=== PATIENT | female | born 1995 | race Two or more races ===

== ENCOUNTER 2021-03-13 13:35 | Outpatient (REF) | payer MEDICAID, SELFPAY | END 2021-03-13 13:36 | disposition home or self-care (01) | LOC: HO.LAB 13:35 | PROVIDERS: PCP Pediatrics; Visit Provider Internal Medicine | DX: Z20.822 Contact with and (suspected) exposure to COVID-19 (principal) | CPT/HCPCS: C9803; U0003; U0005 ==

== ENCOUNTER 2021-03-21 15:37 | Outpatient (REF) | payer MEDICAID, SELFPAY | END 2021-03-21 15:38 | disposition home or self-care (01) | LOC: HO.LAB 15:37 | PROVIDERS: Visit Provider Internal Medicine | DX: Z20.822 Contact with and (suspected) exposure to COVID-19 (principal) | CPT/HCPCS: C9803; U0003; U0005 ==

== ENCOUNTER 2021-08-15 09:08 | Outpatient (REF) | payer MEDICAID, SELFPAY ==
[2021-08-15 09:45] LABS: COVID-19 Test Negative (Negative)
== END 2021-08-15 09:09 | disposition home or self-care (01) ==
LOC: HO.LAB 09:08
PROVIDERS: PCP Pediatrics; Visit Provider Internal Medicine
DX: Z20.822 Contact with and (suspected) exposure to COVID-19 (principal)
CPT/HCPCS: 36415; 87635; C9803

== ENCOUNTER 2021-10-08 15:06 | Emergency (ER) | payer MEDICAID, SELFPAY ==
--- NOTE | ~2021-10-08 | XR_ITS ---
EXAMINATION: XR SCAPULA, LEFT CLINICAL INFORMATION: Fall, left scapula pain COMPARISON: None TECHNIQUE: AP and scapular Y views of the left scapula. FINDINGS: The scapula is normal in appearance with no evidence of fracture. The glenohumeral and acromioclavicular articulations are maintained. XR/XR scapula LT IMPRESSION: Normal left scapula.
[2021-10-08 15:49] VITALS: BP 120/75; PULSE 68; RESP 16; TEMP 36.1; O2SAT 98; BMI 37.8
--- NOTE | 2021-10-08 19:39 | ED_ITS ---
HPI - Back Pain/Injury General Chief Complaint: Back Pain/Injury Stated Complaint: fell / back pain L shoulder pain Time Seen by Provider: 10/08/21 19:38 Source: patient Limitations: no limitations History of Present Illness HPI Narrative: This is a 26-year-old female who fell around 14:00 today when she slipped on ice and fell on her back. Patient did bump her head but denies loss of consciousness. She denies any nausea vomiting. She has a mild headache. Denies any neck pain. The patient has pain to her upper back, worse on the left side. She denies pain that is worse taking a deep breath. He denies shortness of breath. Denies abdominal pain or injuries to her lower extremities. Related Data Previous Rx's Medication Instructions Recorded cyclobenzaprine 10 mg tablet 10 mg PO TID PRN #20 tab 10/08/21 ibuprofen 600 mg tablet 600 mg PO Q6H PRN #30 tab 10/08/21 Allergies Allergy/AdvReac Type Severity Reaction Status Date / Time No Known Allergies Allergy Verified 10/08/21 15:46 Review of Systems Constitutional: Constitutional: Reports as per HPI, Denies fever(s) and Reports headache(s) Eyes: Eyes: Reports no additional eye complaints ENT: Reports headache(s) Cardiovascular: Cardiovascular: Reports no additional cardiovascular complaints Respiratory: Respiratory: Reports no additional respiratory complaints Gastrointestinal: Gastrointestinal: Reports no additional gastrointestinal complaints, Denies abdominal pain, Denies nausea and Denies vomiting Musculoskeletal: Musculoskeletal: Reports back pain and Denies numbness Neurologic: Reports headache(s), Denies focal weakness, Denies numbness, Denies Sensory deficit (Neuro) and Denies paresthesias [facility] Past Medical History Medical History (Updated 10/09/21 @ 00:01 by Background Daemon) No known health problems Social History Social History Advance Directives: No Advance Directives Information Provided: Yes Physical Exam Vital Signs: Vital Signs: Last Vital Signs Temp 97 F 10/08/21 15:49 Pulse 68 10/08/21 15:49 Resp 16 10/08/21 15:49 BP 120/75 10/08/21 15:49 Pulse Ox 98 10/08/21 15:49 BMI result Body Mass Index 37.8 Const: General: cooperative, no acute distress and alert Orien tation/consciousness: patient oriented x3 HENMT: Head: Yes normal to inspection Eyes: General: appearance normal, both eyes and all related structures Eyelids: Yes eyelids normal Conjunctivae: conjunctivae normal Pupils: Equal, round and reactive pupils present Neck: Neck: Yes normal visual inspection and Yes supple Chest: Chest palpation & inspection: normal inspection of the chest Resp: Effort & Inspection: normal respiratory effort Auscultation: clear to auscultation bilaterally Cardio: Rate: regular rate Rhythm: regular rhythm Heart sounds: S1 normal heart sound present, S2 normal heart sound present, no gallops, no murmurs and no rubs GI: Palpation (GI): Soft to palpation, nontender and Other GI palpation findings present (Non-distended) Auscultation: normal bowel sounds Back/Spine/Pelvis: Other: Patient with pain out of proportion to physiology when lightly touched both her left upper back and around her left clavicle area. Patient has clear lungs, moves her head normally, no focal tenderness over the cervical spine Skin: General skin exam: no rashes or lesions noted Neuro: General: patient oriented x3, no focal motor deficits and CN's II-XI intact bilaterally Cranial nerves: Yes Equal, round and reactive pupils present Cognition (Neuro): normal cognition Motor exam (neuro): 5/5 motor strength present throughout Sensory Exam: No Sensory deficit (Neuro) Extrem: General: Yes normal to inspection and Yes no pedal edema Psych: Appearance: grossly normal Affect: normal affect MDM - Back Pain/Injury MDM Narrative Medical decision making narrative: Patient with over back pain after a fall, principally around her shoulder blade. Patient also seems to have exquisite tenderness anteriorly and almost river help patient has done. Scapular x-ray negative. Patient bumped her head but has no scalp tenderness along no cervical spine tenderness, moves her head normally. Patient has no pleuritic symptoms, doubt rib fracture. Imaging Data Left scapula x-ray: Radiologist's impression: Negative for pathology Discharge Plan Discharge Clinical Impression: Contusion of upper back Patient Disposition: Home, Self-Care Instructions: Contusion in Adults (ED) Additional Instructions: Use an ice pack off and on. Use ibuprofen Flexeril as prescribed for pain and muscle strain. Return for any new or worse symptoms. Prescriptions: New ibuprofen 600 mg tablet 600 mg PO Q6H PRN (Reason: pain) Qty: 30 RF: 0 cyclobenzaprine 10 mg tablet 10 mg PO TID PRN (Reason: muscle spasm) Qty: 20 RF: 0 Interventions: ED Discharge Assessment Last Done: 10/08/21 20:23 Discharge Date/Time: 10/08/21 19:49
[2021-10-08] MEDS: Ibuprofen 600 MG TABLET PO (19:56)
[2021-10-08] MEDS: Cyclobenzaprine HCl 10 MG TABLET PO (19:56)
== END 2021-10-08 19:49 | disposition home or self-care (01) ==
PROVIDERS: Emergency Provider Emergency Medicine; PCP Pediatrics
DX: S30.0XXA Contusion of lower back and pelvis, initial encounter (principal); G44.309 Post-traumatic headache, unspecified, not intractable; M25.512 Pain in left shoulder; W00.0XXA Fall on same level due to ice and snow, initial encounter; Y93.9 Activity, unspecified; Y92.9 Unspecified place or not applicable; Y99.9 Unspecified external cause status; Z79.899 Other long term (current) drug therapy
CPT/HCPCS: 73010; 99284

== ENCOUNTER 2022-01-29 09:31 | Emergency (ER) | payer MEDICAID, SELFPAY ==
[2022-01-29 09:55] VITALS: BP 122/75; PULSE 89; RESP 20; TEMP 36.3; O2SAT 97; BMI 35.9
[2022-01-29 11:06] LABS: Glucose, Whole Blood 126 mg/dL (60-115)
[2022-01-29 11:06] LABS: MANUAL DIFF FLAG NO
[2022-01-29 11:21] LABS: Basophils Percent Auto 0.3 % (0-2); Eosinophils Absolute Auto 0.1 X10*3/uL (0.0-0.4); Eosinophils Percent Auto 0.9 % (0-4); Hematocrit 36.8 % (37.0-47.0); Hemoglobin 11.6 g/dl (12.0-16.0); Imm Gran Abs Auto 0.06 X10*3/uL (0.00-0.03); Imm Gran Pct Auto 0.6 % (0.0-0.4); Lymphocytes Absolute Auto 2.1 X10*3/uL (1.2-4.9); Lymphocytes Percent Auto 22.3 % (20-40); Mean Corpuscular HGB Conc 31.5 g/dl (31.0-35.0); Mean Corpuscular Hemoglobin 25.9 pg (27.0-33.0); Mean Corpuscular Volume 82.1 fL (80.0-98.0); Monocytes Absolute Auto 0.6 X10*3/uL (0.1-1.2); Monocytes Percent Auto 5.8 % (2-11); Neutrophils Absolute Auto 6.7 x10*3/uL (2.0-8.3); Neutrophils Percent Auto 70.1 % (45-73); Platelet Count 299 X10*3/uL (160-400); Red Blood Count 4.48 X10*6/uL (4.20-5.50); Red Cell Distribution Width 14.3 % (11.0-16.0); White Blood Count 9.6 X10*3/uL (4.8-10.8)
[2022-01-29 11:25] LABS: Anion Gap 11 (12-20); Blood Urea Nitrogen 11 mg/dL (9-16); Calcium 9.6 mg/dL (8.4-10.2); Carbon Dioxide 26 mmol/L (22-29); Chloride 106 mmol/L (96-108); Creatinine Clr Calc Pharmacy 109.8; Estimated Glomerular Filt Rate > 60; Glucose Random 127 mg/dL (60-115); Potassium 4.4 mmol/L (3.3-5.1); Sodium 139 mmol/L (135-145)
[2022-01-29 12:13] VITALS: BP 114/72; PULSE 93; RESP 18; TEMP 36.8; O2SAT 98
--- NOTE | 2022-01-29 12:17 | ED_ITS ---
HPI - Nausea/Vomiting/Diarrhea General Chief complaint: Nausea/Vomiting/Diarrhea Stated complaint: Vomiting/Diarrhea Time Seen by Provider: 01/29/22 12:08 Source: patient Mode of arrival: ambulatory Limitations: no limitations History of Present Illness MD elicited complaint: nausea, vomiting, diarrhea and abdominal pain Onset (ago): day(s) (3) Description of vomiting: food contents and watery Description of diarrhea: watery Associated nausea: Yes Associated abdominal pain: Yes Location of pain: diffuse Radiation: diffuse Pain consistency: intermittent Severity: mild Quality: cramping Exacerbating factors: eating Relieving factors: none Context: other (patient cannot think of precipitating issue) Associated symptoms: fever/chills, loss of appetite, malaise and nausea/vomiting Treatment prior to arrival: other (félix caldwell) Related Data Previous Rx's Medication Instructions Recorded cyclobenzaprine 10 mg tablet 10 mg PO TID PRN #20 tab 10/08/21 ibuprofen 600 mg tablet 600 mg PO Q6H PRN #30 tab 10/08/21 ondansetron 4 mg disintegrating 4 mg PO Q8H PRN #20 tab 01/29/22 tablet Allergies Allergy/AdvReac Type Severity Reaction Status Date / Time No Known Allergies Allergy Verified 10/08/21 15:46 Review of Systems Review of Systems: Constitutional : No Weight loss, pos subj Fever, pos Chills ENT/Mouth : No sore throat, No Rhinorrhea Eyes: No Swelling, No Redness Cardiovascular : No Chest Pain, No SOB, NoEdema Respiratory : No Cough, No Sputum, No Wheezing Gastrointestinal : Positive Nausea, Positive Vomiting, positive Diarrhea, positive abdominal Pain, No Hematochezia, No Melena Genitourinary : No Dysuria, No Urinary Frequency, No Hematuria, No Urgency Musculoskeletal : No joint pain, No Myalgias, No Joint Swelling Skin : No Skin Lesions, No rash Neuro : No Weakness, No Numbness, No Dizziness, No Headache Psych : No Anxiety/Panic, No Depression Heme/Lymph: No Bruising, No Lymphadenopathy Endocrine : No Polyuria, No Polydipsia All other systems reviewed and are negative. Gastrointestinal: Gastrointestinal: Reports nausea PMFSH Past Medical History Attestation statement: The following information was validated with the patient. Medical History Asthma HLD (hyperlipidemia) HTN (hypertension) Prediabetes Social History Social History (Updated 01/29/22 @ 12:20 by Kristin Alonso DO) Patient Tobacco Use Status: Never used Tobacco Advance Directives: No Advance Directives Information Provided: No Patient : No Physical Exam Vital Signs: Vital Signs: Last Vital Signs Temp 98.3 F 01/29/22 12:13 Pulse 93 01/29/22 12:13 Resp 18 01/29/22 12:13 BP 114/72 01/29/22 12:13 Pulse Ox 98 01/29/22 12:13 BMI result Body Mass Index 35.9 Appearance: Alert. Oriented X3. No acute distress. Eyes: Pupils equal, round and reactive to light. ENT: Pharynx normal. Neck: Normal inspection. Neck supple. CVS: Normal heart rate and rhythm. Pulses normal. Respiratory: No respiratory distress. Breath sounds normal. Abdomen: Soft and non-tender. Skin: Skin warm and dry. Normal skin color. Normal skin turgor. Extremities: No lower extremity edema. No calf ttp Neuro: Oriented X 3. No motor deficit. No sensory deficit. Course Course Course Narrative: no diarrhea while here in ED x 4.5 hours, tolerating PO no WBC count colitis and C diff seem unlikely stable VS can be DC home MDM - Nausea/Vomiting/Diarrhea MDM Narrative Medical decision making narrative: 26 yo female no sig PMH here with c/o n/v/d with mild intermittent abdominal pain - no sick contacts, food exposures, recent abx use. At this time her abdominal exam is benign. Will hydrate provide supportive medications - no localized pain to suggest appendicitis/cholecystitis. Dispo per results and findings. Lab Data Result diagrams: 01/29/22 11:02 01/29/22 11:02 Labs: Lab Results 01/29/22 01/29/22 01/29/22 Range/Units 10:59 11:02 11:02 WBC 9.6 (4.8-10.8) X10*3/uL RBC 4.48 (4.20-5.50) X10*6/uL Hgb 11.6 L (12.0-16.0) g/dl Hct 36.8 L (37.0-47.0) % MCV 82.1 (80.0-98.0) fL MCH 25.9 L (27.0-33.0) pg MCHC 31.5 (31.0-35.0) g/dl RDW 14.3 (11.0-16.0) % Plt Count 299 (160-400) X10*3/uL MPV 11.0 (9.4-12.3) fL Immature Gran % (Auto) 0.6 H (0.0-0.4) % Neut % (Auto) 70.1 (45-73) % Lymph % (Auto) 22.3 (20-40) % [place] % (Auto) 5.8 (2-11) % Eos % (Auto) 0.9 (0-4) % Baso % (Auto) 0.3 (0-2) % Lymph # (Auto) 2.1 (1.2-4.9) X10*3/uL [place] # (Auto) 0.6 (0.1-1.2) X10*3/uL Eos # (Auto) 0.1 (0.0-0.4) X10*3/uL Baso # (Auto) 0.0 (0.0-0.2) X10*3/uL Abs Immat Gran (auto) 0.06 H (0.00-0.03) X10*3/uL Absolute Neuts (auto) 6.7 (2.0-8.3) x10*3/uL Absolute Nucleated RBC 0.000 (0.0-0.012) X10*3/uL Nucleated RBC % (auto) 0.0 (0.0-0.2) /100WBC Sodium 139 (135-145) mmol/L Potassium 4.4 (3.3-5.1) mmol/L Chloride 106 (96-108) mmol/L Carbon Dioxide 26 (22-29) mmol/L Anion Gap 11 L (12-20) BUN 11 (9-16) mg/dL Creatinine 0.76 (0.5-1.4) mg/dL Estim Creat Clear Calc 109.8 Estimated GFR > 60 POC Glucose 126 H (60-115) mg/dL Random Glucose 127 H (60-115) mg/dL Calcium 9.6 (8.4-10.2) mg/dL Total Bilirubin 0.3 (0.0-1.0) mg/dL Direct Bilirubin 0.2 (0.0-0.5) mg/dL AST 16 (5-31) U/L ALT 18 (0-31) U/L Alkaline Phosphatase 66 (39-117) U/L Total Protein 7.8 (6.5-8.0) g/dL Albumin 4.3 (3.5-5.0) g/dL Lipase 24 (8-78) U/L Urine Color Urine Appearance Urine pH (5.0-8.0) Ur Specific [place] (1.005-1.025) Urine Protein (NEG-TRACE) MG/DL Urine Glucose (UA) (NEG) MG/DL Urine Ketones (NEG) MG/DL Urine Blood (NEG) Urine Nitrite (NEG) Ur Leukocyte Esterase (NEG) Urine Test (NEGATIVE) COVID-19 (OSVALDO) (Negative) COVID-19 Clin Com Influenza Type A (ROBYN) (Negative) Influenza Type B (ROBYN) (Negative) Influenza A & B Note 01/29/22 01/29/22 01/29/22 Range/Units 12:15 12:15 12:32 WBC (4.8-10.8) X10*3/uL RBC (4.20-5.50) X10*6/uL Hgb (12.0-16.0) g/dl Hct (37.0-47.0) % MCV (80.0-98.0) fL MCH (27.0-33.0) pg MCHC (31.0-35.0) g/dl RDW (11.0-16.0) % Plt Count (160-400) X10*3/uL MPV (9.4-12.3) fL Immature Gran % (Auto) (0.0-0.4) % Neut % (Auto) (45-73) % Lymph % (Auto) (20-40) % [place] % (Auto) (2-11) % Eos % (Auto) (0-4) % Baso % (Auto) (0-2) % Lymph # (Auto) (1.2-4.9) X10*3/uL [place] # (Auto) (0.1-1.2) X10*3/uL Eos # (Auto) (0.0-0.4) X10*3/uL Baso # (Auto) (0.0-0.2) X10*3/uL Abs Immat Gran (auto) (0.00-0.03) X10*3/uL Absolute Neuts (auto) (2.0-8.3) x10*3/uL Absolute Nucleated RBC (0.0-0.012) X10*3/uL Nucleated RBC % (auto) (0.0-0.2) /100WBC Sodium (135-145) mmol/L Potassium (3.3-5.1) mmol/L Chloride (96-108) mmol/L Carbon Dioxide (22-29) mmol/L Anion Gap (12-20) BUN (9-16) mg/dL Creatinine (0.5-1.4) mg/dL Estim Creat Clear Calc Estimated GFR POC Glucose (60-115) mg/dL Random Glucose (60-115) mg/dL Calcium (8.4-10.2) mg/dL Total Bilirubin (0.0-1.0) mg/dL Direct Bilirubin (0.0-0.5) mg/dL AST (5-31) U/L ALT (0-31) U/L Alkaline Phosphatase (39-117) U/L Total Protein (6.5-8.0) g/dL Albumin (3.5-5.0) g/dL Lipase (8-78) U/L Urine Color YELLOW Urine Appearance CLEAR Urine pH 5.5 (5.0-8.0) Ur Specific [place] >= 1.030 H (1.005-1.025) Urine Protein NEG (NEG-TRACE) MG/DL Urine Glucose (UA) NEG (NEG) MG/DL Urine Ketones NEG (NEG) MG/DL Urine Blood NEG (NEG) Urine Nitrite NEG (NEG) Ur Leukocyte Esterase NEG (NEG) Urine Test (NEGATIVE) COVID-19 (OSVALDO) Negative (Negative) COVID-19 Clin Com See Note Influenza Type A (ROBYN) Negative (Negative) Influenza Type B (ROBYN) Negative (Negative) Influenza A & B Note See Note 01/29/22 Range/Units 12:32 WBC (4.8-10.8) X10*3/uL RBC (4.20-5.50) X10*6/uL Hgb (12.0-16.0) g/dl Hct (37.0-47.0) % MCV (80.0-98.0) fL MCH (27.0-33.0) pg MCHC (31.0-35.0) g/dl RDW (11.0-16.0) % Plt Count (160-400) X10*3/uL MPV (9.4-12.3) fL Immature Gran % (Auto) (0.0-0.4) % Neut % (Auto) (45-73) % Lymph % (Auto) (20-40) % [place] % (Auto) (2-11) % Eos % (Auto) (0-4) % Baso % (Auto) (0-2) % Lymph # (Auto) (1.2-4.9) X10*3/uL [place] # (Auto) (0.1-1.2) X10*3/uL Eos # (Auto) (0.0-0.4) X10*3/uL Baso # (Auto) (0.0-0.2) X10*3/uL Abs Immat Gran (auto) (0.00-0.03) X10*3/uL Absolute Neuts (auto) (2.0-8.3) x10*3/uL Absolute Nucleated RBC (0.0-0.012) X10*3/uL Nucleated RBC % (auto) (0.0-0.2) /100WBC Sodium (135-145) mmol/L Potassium (3.3-5.1) mmol/L Chloride (96-108) mmol/L Carbon Dioxide (22-29) mmol/L Anion Gap (12-20) BUN (9-16) mg/dL Creatinine (0.5-1.4) mg/dL Estim Creat Clear Calc Estimated GFR POC Glucose (60-115) mg/dL Random Glucose (60-115) mg/dL Calcium (8.4-10.2) mg/dL Total Bilirubin (0.0-1.0) mg/dL Direct Bilirubin (0.0-0.5) mg/dL AST (5-31) U/L ALT (0-31) U/L Alkaline Phosphatase (39-117) U/L Total Protein (6.5-8.0) g/dL Albumin (3.5-5.0) g/dL Lipase (8-78) U/L Urine Color Urine Appearance Urine pH (5.0-8.0) Ur Specific [place] (1.005-1.025) Urine Protein (NEG-TRACE) MG/DL Urine Glucose (UA) (NEG) MG/DL Urine Ketones (NEG) MG/DL Urine Blood (NEG) Urine Nitrite (NEG) Ur Leukocyte Esterase (NEG) Urine Test NEGATIVE (NEGATIVE) COVID-19 (OSVALDO) (Negative) COVID-19 Clin Com Influenza Type A (ROBYN) (Negative) Influenza Type B (ROBYN) (Negative) Influenza A & B Note Discharge Plan Discharge Clinical Impression: Diarrhea, Vomiting Patient Disposition: Home, Self-Care Instructions: Acute Nausea and Vomiting (ED), Acute Diarrhea (ED) Additional Instructions: return to ED for any worsening symptoms or concerns bananas, rice, apple sauce, yogurt, toast - bland diet for 2 days immodium is okay to decrease diarrhea Prescriptions: New ondansetron 4 mg tablet,disintegrating 4 mg PO Q8H PRN (Reason: nausea and vomiting) Qty: 20 0RF No Action ibuprofen 600 mg tablet 600 mg PO Q6H PRN (Reason: pain) Qty: 30 0RF cyclobenzaprine 10 mg tablet 10 mg PO TID PRN (Reason: muscle spasm) Qty: 20 0RF Referrals: Kathy Akins MD [Primary Care Provider] - 3 days (if diarrhea persists) Stand Alone Forms: Work/School Release
[2022-01-29] MEDS: ondansetron HCL 4 MG/2 ML VIAL IVPUSH (12:28)
[2022-01-29] MEDS: 0.9 % Sodium Chloride 1,000 ML 999 ML IV (12:28)
[2022-01-29] MEDS: Ketorolac Tromethamine 30 MG/ML VIAL IVPUSH (12:28)
[2022-01-29 12:31] LABS: Alanine Aminotransferase 18 U/L (0-31); Albumin Level 4.3 g/dL (3.5-5.0); Alkaline Phosphatase 66 U/L (39-117); Aspartate Amino Transferase 16 U/L (5-31); Bilirubin Direct 0.2 mg/dL (0.0-0.5); Bilirubin Total 0.3 mg/dL (0.0-1.0); Lipase 24 U/L (8-78); Total Protein 7.8 g/dL (6.5-8.0)
[2022-01-29 12:41] LABS: Appearance Urine CLEAR; Color Urine YELLOW; Glucose Urine UA NEG (NEG); Leukocyte Esterase Urine NEG (NEG); Nitrite Urine NEG (NEG); PH 5.5 (5.0-8.0); Specific Gravity - Urine >= 1.030 (1.005-1.025); Urine Blood NEG (NEG); Urine Ketones NEG (NEG); Urine Protein NEG (NEG-TRACE)
[2022-01-29 12:42] LABS: Influenza A Negative (Negative); Influenza B2 Negative (Negative)
[2022-01-29 12:43] LABS: UPreg QC Valid YES; Urine Pregnancy NEGATIVE (NEGATIVE)
[2022-01-29 12:45] LABS: COVID-19 Test Negative (Negative); IDNOW Serial# 9DB6401D
== END 2022-01-29 14:37 | disposition home or self-care (01) ==
PROVIDERS: Emergency Provider Emergency Medicine; PCP Pediatrics
DX: R19.7 Diarrhea, unspecified (principal); R11.10 Vomiting, unspecified; J45.909 Unspecified asthma, uncomplicated; I10 Essential (primary) hypertension; R73.03 Prediabetes; Z20.822 Contact with and (suspected) exposure to COVID-19
CPT/HCPCS: 36415; 80048; 80076; 81003; 81025; 82947; 83690; 85025; 87502; 87635; 96361; 96374; 96375; 99283; 99284; J1885; J2405

== ENCOUNTER 2022-07-26 09:48 | Emergency (ER) | payer MEDICAID, SELFPAY ==
--- NOTE | ~2022-07-26 | XR_ITS ---
EXAMINATION: XR CHEST CLINICAL INFORMATION: Cough COMPARISON: 01/05/2019 TECHNIQUE: Frontal view of the chest was obtained. FINDINGS: The lungs are well expanded. There is no focal consolidation, edema, or effusion. No pneumothorax. The cardiomediastinal silhouette is within normal limits. No acute osseous abnormality. XR/XR chest 1V IMPRESSION: Clear lungs.
[2022-07-26 10:23] VITALS: BP 152/104; PULSE 94; RESP 18; TEMP 37.1; O2SAT 98; BMI 35.9
[2022-07-26 10:38] LABS: MANUAL DIFF FLAG NO
[2022-07-26 10:42] LABS: Basophils Percent Auto 0.4 % (0-2); Eosinophils Absolute Auto 0.1 X10*3/uL (0.0-0.4); Eosinophils Percent Auto 2.7 % (0-4); Hematocrit 36.8 % (37.0-47.0); Hemoglobin 11.6 g/dl (12.0-16.0); Imm Gran Abs Auto 0.02 X10*3/uL (0.00-0.03); Imm Gran Pct Auto 0.4 % (0.0-0.4); Lymphocytes Absolute Auto 1.8 X10*3/uL (1.2-4.9); Lymphocytes Percent Auto 35.1 % (20-40); Mean Corpuscular HGB Conc 31.5 g/dl (31.0-35.0); Mean Corpuscular Hemoglobin 25.6 pg (27.0-33.0); Mean Corpuscular Volume 81.1 fL (80.0-98.0); Mean Platelet Volume 10.6 fL (9.4-12.3); Monocytes Absolute Auto 0.4 X10*3/uL (0.1-1.2); Monocytes Percent Auto 7.1 % (2-11); Neutrophils Absolute Auto 2.9 x10*3/uL (2.0-8.3); Neutrophils Percent Auto 54.3 % (45-73); Platelet Count 309 X10*3/uL (160-400); Red Blood Count 4.54 X10*6/uL (4.20-5.50); Red Cell Distribution Width 14.2 % (11.0-16.0); White Blood Count 5.2 X10*3/uL (4.8-10.8)
[2022-07-26 10:55] LABS: Anion Gap 16 (12-20); Blood Urea Nitrogen 10 mg/dL (9-16); Calcium 8.9 mg/dL (8.4-10.2); Carbon Dioxide 20 mmol/L (22-29); Chloride 107 mmol/L (96-108); Creatinine Clr Calc Pharmacy 111.3; Estimated Glomerular Filt Rate > 60; Glucose Random 120 mg/dL (60-115); Potassium 4.4 mmol/L (3.3-5.1); Sodium 139 mmol/L (135-145)
[2022-07-26 11:20] LABS: Influenza A PCR NEGATIVE (Negative); Influenza B PCR NEGATIVE (Negative); Resp Syncy Virus RNA Qual PCR NEGATIVE (Negative); SARS COV2 PCR INHOUSE POSITIVE (Negative)
--- NOTE | 2022-07-26 11:32 | ED.URI ---
HPI - URI/Sore Throat General Chief Complaint: Upper Respiratory Symptoms Stated Complaint: SOB Asthma Time Seen by Provider: 07/26/22 11:20 Source: patient Mode of arrival: ambulatory Limitations: no limitations History of Present Illness HPI Narrative: 26 yo female with hx of asthma no inhalers at home c/o shortness of breath, cough, runny nose x 4 days. MD elicited complaint: cough and rhinorrhea Pertinent past history: asthma Onset (ago): day(s) (4) Consistency: constant Severity: moderate Description of mucous: clear Able to tolerate fluids by mouth: Yes Exacerbating factors: exertion and other (coughing) Relieving factors: nothing Associated symptoms: rhinorrhea and cough Treatments prior to arrival: none Related Data Previous Rx's Medication Instructions Recorded cyclobenzaprine 10 mg tablet 10 mg PO TID PRN muscle spasm #20 10/08/21 tabs ibuprofen 600 mg tablet 600 mg PO Q6H PRN pain #30 tabs 10/08/21 ondansetron 4 mg disintegrating 4 mg PO Q8H PRN nausea and 01/29/22 tablet vomiting #20 tabs albuterol sulfate 90 mcg/actuation 2 puff inhalation QID PRN 07/26/22 aerosol inhaler shortness of breath or wheezing #6.7 grams benzonatate 100 mg capsule 100 mg PO TID PRN cough #14 caps 07/26/22 prednisone 20 mg tablet 40 mg PO DAILY 4 days #8 tabs 07/26/22 Allergies Allergy/AdvReac Type Severity Reaction Status Date / Time No Known Allergies Allergy Verified 10/08/21 15:46 Review of Systems Review of Systems: Constitutional : No Fever, No Chills ENT/Mouth : No Hoarseness, No sore throat, pos Rhinorrhea Eyes: No Redness, No Discharge, No Vision Changes Cardiovascular : No Chest Pain, positive SOB, positive Dyspnea on Exertion, No Edema Respiratory : positive Cough, No Sputum, positive Wheezing, Gastrointestinal : No Nausea, No Vomiting, No Diarrhea, No abdominal Pain Genitourinary : No Dysuria, No Hematuria Musculoskeletal : No joint pain, No Myalgias Skin : No rash Neuro : No Weakness, No Numbness, No Headache PMFSH Past Medical History Medical History Asthma HLD (hyperlipidemia) HTN (hypertension) Prediabetes Social History Social History (Updated 01/29/22 @ 12:20 by Natividad Alonso DO) Patient Tobacco Use Status: Never used Tobacco Advance Directives: No Advance Directives Information Provided: No Physical Exam Vital Signs: Vital Signs: Last Vital Signs Temp 98.8 F 07/26/22 10:23 Pulse 94 07/26/22 10:23 Resp 18 07/26/22 10:23 BP 152/104 H 07/26/22 10:23 Pulse Ox 98 07/26/22 10:23 O2 Del Method 07/26/22 10:23 BMI result Body Mass Index 35.9 Appearance: Alert. Oriented X3. No acute distress. Eyes: Pupils equal, round and reactive to light. ENT: Pharynx normal. Neck: Normal inspection. Neck supple. CVS: Normal heart rate and rhythm. Pulses normal. Respiratory: No respiratory distress. Breath sounds diminished Abdomen: Soft and nontender. Skin: Skin warm and dry. Normal skin color. Normal skin turgor. Extremities: No lower extremity edema. No calf ttp Neuro: Oriented X 3. No motor deficit. No sensory deficit. Course Course Course Narrative: feels better, no hypoxia, given INH in hand MDM - URI/Sore Throat MDM Narrative Medical decision making narrative: 26 yo female with hx of asthma here with c/o worsening asthma in setting of URI - swabs sent off, no hypoxia will give neb, obtain CXR and start on steroids. Not toxic, no resp distress, no INH at home. Lab Data Result diagrams: 07/26/22 10:31 07/26/22 10:31 Labs: Lab Results 07/26/22 07/26/22 07/26/22 Range/Units 10:31 10:31 10:31 WBC 5.2 (4.8-10.8) X10*3/uL RBC 4.54 (4.20-5.50) X10*6/uL Hgb 11.6 L (12.0-16.0) g/dl Hct 36.8 L (37.0-47.0) % MCV 81.1 (80.0-98.0) fL MCH 25.6 L (27.0-33.0) pg MCHC 31.5 (31.0-35.0) g/dl RDW 14.2 (11.0-16.0) % Plt Count 309 (160-400) X10*3/uL MPV 10.6 (9.4-12.3) fL Immature Gran % (Auto) 0.4 (0.0-0.4) % Neut % (Auto) 54.3 (45-73) % Lymph % (Auto) 35.1 (20-40) % [place] % (Auto) 7.1 (2-11) % Eos % (Auto) 2.7 (0-4) % Baso % (Auto) 0.4 (0-2) % Lymph # (Auto) 1.8 (1.2-4.9) X10*3/uL [place] # (Auto) 0.4 (0.1-1.2) X10*3/uL Eos # (Auto) 0.1 (0.0-0.4) X10*3/uL Baso # (Auto) 0.0 (0.0-0.2) X10*3/uL Abs Immat Gran (auto) 0.02 (0.00-0.03) X10*3/uL Absolute Neuts (auto) 2.9 (2.0-8.3) x10*3/uL Absolute Nucleated RBC 0.000 (0.0-0.012) X10*3/uL Nucleated RBC % (auto) 0.0 (0.0-0.2) /100WBC Sodium 139 (135-145) mmol/L Potassium 4.4 (3.3-5.1) mmol/L Chloride 107 (96-108) mmol/L Carbon Dioxide 20 L (22-29) mmol/L Anion Gap 16 (12-20) BUN 10 (9-16) mg/dL Creatinine 0.75 (0.5-1.4) mg/dL Estim Creat Clear Calc 111.3 Estimated GFR > 60 Random Glucose 120 H (60-115) mg/dL Calcium 8.9 D (8.4-10.2) mg/dL Influenza Type A (PCR) NEGATIVE (Negative) Influenza Type B (PCR) NEGATIVE (Negative) RSV RNA Qual (PCR) NEGATIVE (Negative) SARS-CoV-2 RNA (RT-PCR) POSITIVE A (Negative) Discharge Plan Discharge Clinical Impression: Acute bronchiolitis due to respiratory syncytial virus Patient Disposition: Home, Self-Care Instructions: Respiratory Syncytial Virus (ED), Bronchospasm (ED) Additional Instructions: return to ED for any worsening symptoms or concerns monitor your breathing - take INHALER 2 to 4 puffs every 3 to 4 hours for wheezing take steroid 07/27 this is contagious please stay away from other people for the next 4 days (total contagious window is generally 8 days) Prescriptions: New prednisone 20 mg tablet 40 mg PO DAILY 4 Days Qty: 8 0RF benzonatate 100 mg capsule 100 mg PO TID PRN (Reason: cough) Qty: 14 0RF albuterol sulfate 90 mcg/actuation HFA aerosol inhaler 2 puff inhalation QID PRN (Reason: shortness of breath or wheezing) Qty: 6.7 0RF No Action ibuprofen 600 mg tablet 600 mg PO Q6H PRN (Reason: pain) Qty: 30 0RF cyclobenzaprine 10 mg tablet 10 mg PO TID PRN (Reason: muscle spasm) Qty: 20 0RF ondansetron 4 mg tablet,disintegrating 4 mg PO Q8H PRN (Reason: nausea and vomiting) Qty: 20 0RF Stand Alone Forms: Work/School Release
[2022-07-26] MEDS: Albuterol Sulfate 90 MCG 8 GM INHALER 2 PUFF INHALE (11:43)
[2022-07-26] MEDS: Albuterol Sulfate (0.083%) 2.5 MG/3 ML VIAL.NEB INHALE (11:43)
[2022-07-26 11:45] VITALS: PULSE 84; RESP 18; O2SAT 97
[2022-07-26] MEDS: predniSONE 20 MG TABLET 40 MG PO (12:10)
== END 2022-07-26 12:14 | disposition home or self-care (01) ==
PROVIDERS: Emergency Provider Emergency Medicine; PCP Pediatrics
DX: U07.1 COVID-19 (principal); J21.0 Acute bronchiolitis due to respiratory syncytial virus; R06.02 Shortness of breath; I10 Essential (primary) hypertension; E78.5 Hyperlipidemia, unspecified
CPT/HCPCS: 0241U; 71045; 80048; 85025; 94640; 99283; 99284

== ENCOUNTER 2023-04-15 13:32 | Outpatient (REF) | payer MEDICAID, SELFPAY ==
[2023-04-17 22:59] LABS: TS Negative Control Passed; TS Panel A 0; TS Panel B 0; TS Positive Control Passed; TSpotTB Negative (Negative)
== END 2023-04-15 13:33 | disposition home or self-care (01) ==
LOC: HO.CHCLDS 13:32
PROVIDERS: Visit Provider Pediatrics
DX: Z11.1 Encounter for screening for respiratory tuberculosis (principal)
CPT/HCPCS: 36415; 86481

== ENCOUNTER 2023-04-30 11:47 | Outpatient (REF) | payer MEDICAID, SELFPAY | END 2023-04-30 11:48 | disposition home or self-care (01) | LOC: HO.HHCLNP 11:47 | PROVIDERS: Visit Provider Advanced Practice Midwife | DX: Z13.89 Encounter for screening for other disorder (principal) ==

== ENCOUNTER 2023-05-02 10:28 | Outpatient (REF) | payer MEDICAID, SELFPAY | END 2023-05-02 10:29 | disposition home or self-care (01) | LOC: HO.HHCLNP 10:28 | PROVIDERS: Visit Provider Advanced Practice Midwife | DX: Z13.89 Encounter for screening for other disorder (principal) ==

== ENCOUNTER 2023-08-28 11:45 | Emergency (ER) | payer MEDICAID, SELFPAY ==
--- NOTE | ~2023-08-28 | US_ITS ---
EXAMINATION: US OBSTETRICAL ULTRASOUND CLINICAL INFORMATION: There is syncope. Rule out ectopic. COMPARISON: None available. LMP: 08/28/2023. Gestational age by maternal dates is 0 weeks and 0 days. Estimated date of delivery by maternal dates is 06/03/2024. TECHNIQUE: Routine transabdominal and transvaginal imaging of pelvis is performed. FINDINGS: There is no visualization of intrauterine gestational sac, pole or heart beat. The uterus is midline.. The endometrial thickness is 2 mm. There are small nabothian cysts in the cervix. Right ovary measures 3.2 x 2.0 x 1.8 cm. There is anechoic cyst measuring 1.1 x 1.0 x 0.9 cm. The left ovary measures 2.6 x 1.8 x 1.6 cm. There is trace amount of free fluid in cul-de-sac. US/US OB pelvic and transvaginal IMPRESSION: 1. No intrauterine seen. Endometrial thickness is 2 mm. There is trace fluid in the cul-de-sac. Small right paraovarian cyst measuring 1.1 cm.
[2023-08-28 12:38] VITALS: BP 131/85; PULSE 88; RESP 20; TEMP 36.6; O2SAT 98; BMI 41.2
--- NOTE | 2023-08-28 12:39 | ED_ITS ---
HPI - Syncope General Chief Complaint: Syncope Stated Complaint: Syncope Time Seen by Provider: 08/28/23 12:51 Source: patient, RN notes reviewed and old records reviewed History of Present Illness HPI narrative: 28-year-old female with a past medical history of asthma, HLD, HTN, prediabetes, presenting to the ED from work s/p near syncopal episode [employer]. Patient states she has been feeling unwell/generally weak/fatigue x 4 days with chills/feeling shaky, worse today. 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 Reports mild headache. Denies vision change/loss, nausea/vomiting, CP/SOB, abdominal pain. Currently on menses. Denies travel MD complaint: felt faint and almost passed out Related Data Previous Rx's Medication Instructions Recorded cyclobenzaprine 10 mg tablet 10 mg PO TID PRN muscle spasm #20 10/08/21 tabs ibuprofen 600 mg tablet 600 mg PO Q6H PRN pain #30 tabs 10/08/21 ondansetron 4 mg disintegrating 4 mg PO Q8H PRN nausea and 01/29/22 tablet vomiting #20 tabs albuterol sulfate 90 mcg/actuation 2 puff inhalation QID PRN 07/26/22 aerosol inhaler shortness of breath or wheezing #6.7 grams benzonatate 100 mg capsule 100 mg PO TID PRN cough #14 caps 07/26/22 prednisone 20 mg tablet 40 mg (2 x 20 mg) PO DAILY 4 days 07/26/22 #8 tabs Allergies Allergy/AdvReac Type Severity Reaction Status Date / Time No Known Allergies Allergy Verified 08/28/23 12:37 Review of Systems 2 Review of Systems: Constitutional: No Fever, + Chills, + Fatigue, No Malaise ENT/Mouth: No Ear Pain, No Nasal Congestion, No Sinus Pain, No sore throat, No Rhinorrhea, No Swallowing Difficulty Eyes: No Eye Pain, No Swelling, No Redness, No Vision Changes Cardiovascular: No Chest Pain, No SOB, No Edema, No Palpitations Respiratory: No Cough, No Sputum, No Dyspnea Gastrointestinal: No Nausea, No Vomiting, No Diarrhea, No Constipation, No Abdominal pain Genitourinary: No Dysuria, No Urinary Frequency, No Hematuria, No Flank Pain Musculoskeletal: No joint pain, No Myalgias, No Joint Swelling Skin: No Skin Lesions, No rash Neuro: + Weakness, No Numbness, No Paresthesias, No Loss of Consciousness, + lightheaded, + Headache Yes all other systems are reviewed and are negative Constitutional: Constitutional: Reports as per HPI Neurologic: Denies Abnormal speech present [facility] Past Medical History Attestation statement: The following information was validated with the patient. Source: old records reviewed Medical History Asthma HLD (hyperlipidemia) HTN (hypertension) Prediabetes Social History Social History Patient Tobacco Use Status: Never used Tobacco Advance Directives: No Advance Directives Information Provided: No Physical Exam 2 Vital Signs: Vital Signs: Last Vital Signs Temp 98 F 08/28/23 12:38 Pulse 76 08/28/23 16:51 Resp 18 08/28/23 16:46 BP 123/83 08/28/23 16:51 Pulse Ox 97 08/28/23 16:46 O2 Del Method Room Air 08/28/23 16:46 BMI result Body Mass Index 41.2 Const: General: cooperative, healthy appearing and no acute distress O rientation/consciousness: patient oriented x3 Limitations: no limitations HEENT: Head: Yes normal to inspection and Yes atraumatic Ears: hearing grossly normal bilaterally General nose exam: Normal external nose present Face and sinus: Yes normal facial exam Mouth: Normal oral and palatal mucosa present Throat: Yes posterior oropharynx normal, Yes tonsils normal, Yes uvula midline, No uvula laterally displaced and No uvular edema Eyes: General: appearance normal, both eyes and all related structures P upils: Equal, round and reactive pupils present EOM: EOMs intact bilaterally Neck: Neck: Yes normal visual inspection and Yes no meningeal signs Resp: Effort & Inspection: normal respiratory effort and no respiratory distress Auscultation: clear to auscultation bilaterally, no crackles and no wheezes Cardio: Rate: regular rate Heart sounds: S1 normal heart sound present and S2 normal heart sound present GI: Inspection: Yes normal to inspection Palpation (GI): Soft to palpation, nontender, no guarding and not rigid : General: Yes no CVA tenderness Back/Spine/Pelvis: Back: no CVA tenderness Skin: Rashes: no rashes Wounds: no wounds Neuro: General: patient oriented x3, tone normal, moves all extremities, no meningeal signs, no focal motor deficits and CN's II-XI intact bilaterally C ranial nerves: Yes CN's II-XII intact bilaterally, Yes Equal, round and reactive pupils present and Yes Bilaterally intact EOM present Cognition (Neuro): n ormal cognition Speech: No Abnormal speech present Gait exam (Neuro): N ormal gait present Motor exam (neuro): 5/5 motor strength present throughout Extrem: General: Yes normal to inspection and Yes no pedal edema Course Course Course Narrative: This is an RME: Additional HPI, ROS, PE not included below will be deferred to primary provider. This is a 28-year-old female presenting to the emergency department with a complaint of syncopal episode which happened at work. Patient reports that over the last 4 days she has been feeling weak. She states that while she was at work she had a syncopal episode. Denies any chest pain or shortness of breath. Plan: Labs, EKG, hcg quant, uA -1429--labs reassuring. Troponin negative. Beta quant 3 > patient states she is currently on menses, denies vaginal discharge or abdominal pain > case d/w Dr. Branham >> do to patient being childbearing age/presyncope and bleeding will obtain pelvic ultrasound to rule out ectopic. Low suspicion for reliability of lab/likely hormonal however will need close follow-up with OBGYN/repeat hCG in 48 hours after completed workup -COVID/flu/RSV negative -1630--ED care transferred to [facility] Marquez pending UA, pelvic ultrasound, orthostatics, and anticipated discharge Reevaluation(s) Reevaluation #1: Patient received in sign out from KALIE Martinez pending U/S results. No intrauterine or ectopic seen, small right paraovarian cyst noted. Discussed with patient repeat hcg in 48 hours. No evidence of infection on UA. No orthostatic intolerance. Feel patient is stable for discharge home with OBGYN follow-up. Patient does not have an OBGYN, will refer to Dr. Mitchell. Return precautions discussed. Patient verbalized understanding of and agreement with plan. Time: 17:07 Medications Administered Discontinued Medications Generic Name Dose Route Start Last Admin Trade Name Freq PRN Reason Stop Dose Admin Sodium Chloride 1,000 mls @ 999 mls/hr 08/28/23 13:00 08/28/23 14:30 Ns IV 08/28/23 14:00 Infused .Q1H1M DAMIAN Infusion Medical Decision Making Medical Decision Making [facility] Narrative: 28-year-old female with a past medical history of asthma, HLD, HTN, prediabetes, presenting to the ED from work s/p near syncopal episode [employer]. On exam vital signs stable, NAD, nontoxic appearing, no focal neuro deficits, lungs CTA. Concern for viral illness vs dehydration/metabolic abnormalities. Rule out infectious etiology and anemia. Low suspicion for ACS/PE Plan: EKG, labs, UA, orthostatics, IVF, re-evaluate Please refer to course for remaining clinical decision making, interpretation of labs/imaging results, and discussions with consultants and/or family members. Differential Diagnosis Differential Diagnoses: The differential diagnosis associated with the presentation includes As above Admission/Observation Consideration of admission/observation: Escalation of care including admission/observation considered Lab Data [facility] Lab Attestation statement: I reviewed the patient's lab results. 08/28/23 13:19 08/28/23 13:19 Labs: Lab Results 08/28/23 08/28/23 08/28/23 Range/Units 13:08 13:19 16:06 WBC 9.4 (4.8-10.8) X10*3/uL RBC 4.30 (4.20-5.50) X10*6/uL Hgb 10.6 L (12.0-16.0) g/dl Hct 34.0 L (37.0-47.0) % MCV 79.1 L (80.0-98.0) fL MCH 24.7 L (27.0-33.0) pg MCHC 31.2 (31.0-35.0) g/dl RDW 15.1 (11.0-16.0) % Plt Count 334 (160-400) X10*3/uL MPV 11.3 (9.4-12.3) fL Immature Gran % (Auto) 0.4 (0.0-0.4) % Neut % (Auto) 70.8 (45-73) % Lymph % (Auto) 22.8 (20-40) % [place] % (Auto) 4.8 (2-11) % Eos % (Auto) 1.0 (0-4) % Baso % (Auto) 0.2 (0-2) % Lymph # (Auto) 2.2 (1.2-4.9) X10*3/uL [place] # (Auto) 0.5 (0.1-1.2) X10*3/uL Eos # (Auto) 0.1 (0.0-0.4) X10*3/uL Baso # (Auto) 0.0 (0.0-0.2) X10*3/uL Abs Immat Gran (auto) 0.04 H (0.00-0.03) X10*3/uL Absolute Neuts (auto) 6.7 (2.0-8.3) x10*3/uL Absolute Nucleated RBC 0.000 (0.0-0.012) X10*3/uL Nucleated RBC % (auto) 0.0 (0.0-0.2) /100WBC Sodium 138 (135-145) mmol/L Potassium 3.7 (3.3-5.1) mmol/L Chloride 106 (96-108) mmol/L Carbon Dioxide 25 (22-29) mmol/L Anion Gap 11 L (12-20) BUN 12 (9-16) mg/dL Creatinine 0.82 (0.5-1.4) mg/dL Estim Creat Clear Calc 108.1 Estimated GFR > 60 POC Glucose 138 H (60-115) mg/dL Random Glucose 141 H (60-115) mg/dL Calcium 9.0 (8.4-10.2) mg/dL Magnesium 1.9 (1.6-2.6) mg/dL Total Bilirubin 0.2 (0.0-1.0) mg/dL Direct Bilirubin < 0.2 (0.0-0.5) mg/dL AST 13 (5-31) U/L ALT 12 (0-31) U/L Alkaline Phosphatase 65 (39-117) U/L Troponin I High Sens < 2.7 (<3.5-17.0) ng/L Total Protein 8.2 H (6.5-8.0) g/dL Albumin 4.3 (3.5-5.0) g/dL Beta HCG, Quant 3 mIU/mL Urine Color Yellow Urine Appearance Clear Urine pH 6.0 (5.0-9.0) Ur Specific [place] 1.025 (1.005-1.025) Urine Protein Negative (Neg-Trace) mg/dL Urine Glucose (UA) Negative (Negative) mg/dL Urine Ketones Negative (Negative) mg/dL Urine Blood Trace H (Negative) Urine Nitrite Negative (Negative) Ur Leukocyte Esterase Negative (Negative) Urine RBC 3-5 H (0-2) /HPF Urine WBC 0-5 (0-5) /HPF Ur Squamous Epith Cells 3-5 (0-2) /HPF Urine Bacteria None Seen (None Seen) Hyaline Casts 0-2 (0-2) /LPF Influenza Type A (PCR) NEGATIVE (Negative) Influenza Type B (PCR) NEGATIVE (Negative) RSV RNA Qual (PCR) NEGATIVE (Negative) SARS-CoV-2 RNA (RT-PCR) NEGATIVE (Negative) Independent Interpretation I performed an independent interpretation of an: EKG Radiology Impression Discussion of test interpretation with radiology: I have reviewed the radiologist's reading. External Record Review External record reviewed: Inpatient record, Office record, Outpatient record, Prior outpatient labs, Prior outpatient radiology, Primary care record and Outside ED record Tests considered The following testing was considered but not selected: As above Discharge Plan Discharge Clinical Impression: Pre-syncope, Elevated serum hCG Patient Disposition: Home, Self-Care Instructions: Near Syncope (ED) Additional Instructions: YOU NEED A REPEAT HCG IN 48 HOURS. THEN YOU NEED TO FOLLOW-UP WITH OBGYN Stay hydrated. Drink plenty of fluids If you feel like you are going to pass out again, develops abdominal pain, worsening bleeding, vaginal discharge, chest pain or shortness of breath return to the ED Prescriptions: No Action prednisone 20 mg tablet 40 mg PO DAILY 4 Days Qty: 8 0RF benzonatate 100 mg capsule 100 mg PO TID PRN (Reason: cough) Qty: 14 0RF albuterol sulfate 90 mcg/actuation HFA aerosol inhaler 2 puff inhalation QID PRN (Reason: shortness of breath or wheezing) Qty: 6.7 0RF ibuprofen 600 mg tablet 600 mg PO Q6H PRN (Reason: pain) Qty: 30 0RF cyclobenzaprine 10 mg tablet 10 mg PO TID PRN (Reason: muscle spasm) Qty: 20 0RF ondansetron 4 mg tablet,disintegrating 4 mg PO Q8H PRN (Reason: nausea and vomiting) Qty: 20 0RF Referrals: [facility] [place] [facility] [Provider Group] - 2 days Kathy Akins MD [Primary Care Provider] -
--- NOTE | 2023-08-28 12:42 | ECG_ITS ---
Test Reason : SYNCOPE Blood Pressure : / mmHG Vent. Rate : 093 BPM Atrial Rate : 093 BPM P-R Int : 104 ms QRS Dur : 128 ms QT Int : 362 ms P-R-T Axes : 065 029 133 degrees QTc Int : 450 ms Sinus rhythm with short OH Possible Left atrial enlargement Non-specific intra-ventricular conduction block Cannot rule out Septal infarct , age undetermined Abnormal ECG No previous ECGs available Referred By: Inna Patrick Electronically Signed By:TRI HANSON
[2023-08-28 13:14] LABS: Glucose, Whole Blood 138 mg/dL (60-115)
[2023-08-28 13:24] LABS: MANUAL DIFF FLAG NO
[2023-08-28] MEDS: 0.9 % Sodium Chloride 1,000 ML 999 ML IV (13:27)
[2023-08-28 13:28] LABS: Basophils Percent Auto 0.2 % (0-2); Eosinophils Absolute Auto 0.1 X10*3/uL (0.0-0.4); Hemoglobin 10.6 g/dl (12.0-16.0); Imm Gran Abs Auto 0.04 X10*3/uL (0.00-0.03); Imm Gran Pct Auto 0.4 % (0.0-0.4); Lymphocytes Absolute Auto 2.2 X10*3/uL (1.2-4.9); Lymphocytes Percent Auto 22.8 % (20-40); Mean Corpuscular HGB Conc 31.2 g/dl (31.0-35.0); Mean Corpuscular Hemoglobin 24.7 pg (27.0-33.0); Mean Corpuscular Volume 79.1 fL (80.0-98.0); Mean Platelet Volume 11.3 fL (9.4-12.3); Monocytes Absolute Auto 0.5 X10*3/uL (0.1-1.2); Monocytes Percent Auto 4.8 % (2-11); Neutrophils Absolute Auto 6.7 x10*3/uL (2.0-8.3); Neutrophils Percent Auto 70.8 % (45-73); Platelet Count 334 X10*3/uL (160-400); Red Cell Distribution Width 15.1 % (11.0-16.0); White Blood Count 9.4 X10*3/uL (4.8-10.8)
[2023-08-28 13:46] LABS: Alanine Aminotransferase 12 U/L (0-31); Albumin Level 4.3 g/dL (3.5-5.0); Alkaline Phosphatase 65 U/L (39-117); Anion Gap 11 (12-20); Aspartate Amino Transferase 13 U/L (5-31); Bilirubin Direct < 0.2 mg/dL (0.0-0.5); Bilirubin Total 0.2 mg/dL (0.0-1.0); Blood Urea Nitrogen 12 mg/dL (9-16); Carbon Dioxide 25 mmol/L (22-29); Chloride 106 mmol/L (96-108); Creatinine Clr Calc Pharmacy 108.1; Estimated Glomerular Filt Rate > 60; Glucose Random 141 mg/dL (60-115); HCG Quantitative 3 mIU/mL; Magnesium 1.9 mg/dL (1.6-2.6); Potassium 3.7 mmol/L (3.3-5.1); Sodium 138 mmol/L (135-145); Total Protein 8.2 g/dL (6.5-8.0)
[2023-08-28 13:49] LABS: Troponin-I High Sensitivity < 2.7 ng/L (<3.5-17.0)
[2023-08-28 14:22] LABS: Influenza A PCR NEGATIVE (Negative); Influenza B PCR NEGATIVE (Negative); Resp Syncy Virus RNA Qual PCR NEGATIVE (Negative); SARS COV2 PCR INHOUSE NEGATIVE (Negative)
--- NOTE | 2023-08-28 15:07 | PC.NURSE ---
pt in ultrasound
--- NOTE | 2023-08-28 16:10 | PC.NURSE ---
UA sent. pt resting quietly on stretcher asking about her ultrasound. pt told she will hear from provider once there is a report.
[2023-08-28 16:14] LABS: Appearance Urine Clear; Color Urine Yellow; Glucose Urine UA Negative (Negative); Leukocyte Esterase Urine Negative (Negative); Nitrite Urine Negative (Negative); Specific Gravity - Urine 1.025 (1.005-1.025); UMIC TRIGGER UACC YES; Urine Blood Trace (Negative); Urine Ketones Negative (Negative); Urine Protein Negative (Neg-Trace)
[2023-08-28 16:17] LABS: Bacteria Urine None Seen (None Seen); Hyaline Casts Urine 0-2 /LPF (0-2); WBC Urine 0-5 /HPF (0-5)
--- NOTE | 2023-08-28 16:29 | PC.NURSE ---
pt sitting up in stretcher resting watching [employer] movies. pt offers no complaints brent. call aguilar within reach. rr even/unlabored. plan of care ongoing.
[2023-08-28 16:42] VITALS: O2SAT 98
[2023-08-28 16:46] VITALS: BP 106/53; PULSE 76; RESP 18; O2SAT 97
[2023-08-28 16:49] VITALS: BP 106/53; BP 130/71; PULSE 76
[2023-08-28 16:51] VITALS: BP 123/83; PULSE 76
== END 2023-08-28 17:31 | disposition home or self-care (01) ==
PROVIDERS: Physician Assistant Medical; Emergency Provider Emergency Medicine Emergency Medical Services; PCP Pediatrics
DX: R55 Syncope and collapse (principal); R51.9 Headache, unspecified; Z32.01 Encounter for pregnancy test, result positive; Z20.822 Contact with and (suspected) exposure to COVID-19; Z20.828 Contact with and (suspected) exposure to other viral communicable diseases; E11.9 Type 2 diabetes mellitus without complications; I10 Essential (primary) hypertension; E78.5 Hyperlipidemia, unspecified
CPT/HCPCS: 0241U; 36415; 76801; 76817; 80048; 80076; 81001; 82947; 83735; 84484; 84702; 85025; 93005; 96360; 99284; 99285

== ENCOUNTER → 2023-08-28 12:42 | Outpatient (BNV) | payer MEDICAID, SELFPAY | PROVIDERS: Emergency Provider Emergency Medicine Emergency Medical Services; PCP Pediatrics; Visit Provider Internal Medicine | DX: R94.31 Abnormal electrocardiogram [ECG] [EKG] (principal) | CPT/HCPCS: 93010 ==

== ENCOUNTER 2023-08-30 17:14 | Outpatient (REF) | payer MEDICAID, SELFPAY ==
[2023-09-01 06:03] LABS: HCG Tumor Marker <5 mIU/mL
== END 2023-08-30 17:15 | disposition home or self-care (01) ==
LOC: HO.LAB 17:14
PROVIDERS: Absent Provider Pediatrics; PCP Pediatrics; Visit Provider Internal Medicine
DX: N92.6 Irregular menstruation, unspecified (principal)
CPT/HCPCS: 36415; 84702

== ENCOUNTER 2023-09-01 07:53 | Emergency (ER) | payer MEDICAID, SELFPAY ==
[2023-09-01 08:06] VITALS: BP 130/85; PULSE 88; RESP 16; TEMP 36.5; O2SAT 96; BMI 41.7
--- NOTE | 2023-09-01 08:10 | ECG_ITS ---
Test Reason : DIZINESS Blood Pressure : / mmHG Vent. Rate : 075 BPM Atrial Rate : 075 BPM P-R Int : 124 ms QRS Dur : 162 ms QT Int : 432 ms P-R-T Axes : 112 017 -02 degrees QTc Int : 482 ms Normal sinus rhythm Non-specific intra-ventricular conduction block Cannot rule out Inferior infarct , age undetermined Abnormal ECG No previous ECGs available Referred By: Generic ED Physician Electronically Signed By:TRI HANSON
--- OUTSIDE RECORDS SUMMARY | 2023-09-01 08:31 | XMS_ITS | Continuity of Care Document ---
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 Name Role Phone Tashi HIGGINS, Kathy Gray Primary Care Physician Encounter [facility] [place] Date(s): 06/30/20 - 06/30/[address] [address]- [facility] Encounter Diagnosis Knee contusion(Final) - 06/30/20 Discharge Disposition: A-D/C Home Attending Physician: Adwoa Lynn MD Admitting Physician: Adwoa Lynn MD Referring Physician: Not on Staff, Referring MD Allergies, Adverse Reactions, Alerts No Known Medication Allergies Medications No Known Medications Vital Signs Most recent to oldest [Reference Range]: 1 2 Height 155 cm (06/30/20 3:18 PM) Weight 94 kg (06/30/20 3:18 PM) Oxygen Saturation [94-100 %] 100 % (06/30/20 3:18 PM) 99 % (06/30/20 3:12 PM) Pulse Rate [55-90 bpm] 91 bpm *H* (06/30/20 3:18 PM) 96 bpm *H* (06/30/20 3:12 PM) Body Mass Index [18.5-24.99] 39.13 *>HHI* (06/30/20 3:18 PM) Blood Pressure [90-138/55-84 mm Hg] 128/ 74mm Hg (06/30/20 3:18 PM) Respiratory Rate [16-30 br/min] 16 br/mi n (06/30/20 3:18 PM) Temperature [96.8-100.4 DegF] 98.9 DegF (06/30/20 3:18 PM) Mode of Delivery (Oxygen) Room air (06/30/20 3:18 PM) Room air (06/30/20 3:12 PM) Blood pressure sites Arm, right (06/30/20 3:18 PM) Temperature Route Oral (06/30/20 3:18 PM) Dry Weight 94 kg (06/30/20 3:18 PM) Weight Obtained Via Standing scale (06/30/20 3:18 PM) Dry Weight Obtained Via Standing scale (06/30/20 3:18 PM) Social History Social History Type Response Smoking Status Never smoker; Other: Doesn't smoke cigatettes. Smokes marijuana; entered on: 02/27/18 Sex
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
--- NOTE | 2023-09-01 08:37 | ED_ITS ---
HPI - Dizziness General Chief Complaint: Dizziness Stated Complaint: dizziness Time Seen by Provider: 09/01/23 08:14 History of Present Illness HPI Narrative: Patient 28-year-old female presents today with having episodes of dizziness lightheadedness. Patient has stated that she had something very similar last week. Had labs drawn. There is no fever no chills denies any chest pain or diaphoresis. Denies any focal weakness Related Data Previous Rx's Medication Instructions Recorded meclizine 25 mg tablet 25 mg PO TID PRN dizziness #14 tabs 09/01/23 Allergies Allergy/AdvReac Type Severity Reaction Status Date / Time No Known Allergies Allergy Verified 09/01/23 08:10 PMFSH Social History Social History Advance Directives: No Advance Directives Information Provided: No Physical Exam 2 Vital Signs: Vital Signs: Last Vital Signs Temp 97.7 F 09/01/23 08:06 Pulse 88 09/01/23 08:06 Resp 16 09/01/23 08:06 BP 130/85 09/01/23 08:06 Pulse Ox 96 09/01/23 08:06 O2 Del Method Room Air 09/01/23 08:06 BMI result Body Mass Index 41.7 Medications Administered Discontinued Medications Generic Name Dose Route Start Last Admin Trade Name Freq PRN Reason Stop Dose Admin Sodium Chloride 1,000 mls @ 999 mls/hr 09/01/23 08:45 09/01/23 09:16 Ns IV 09/01/23 09:45 999 mls/hr .Q1H1M DAMIAN Administration Meclizine HCl 25 mg 09/01/23 08:35 09/01/23 09:16 Meclizine Hcl 25 Mg Tablet PO 09/01/23 08:36 25 mg ONCE ONE Administration Medical Decision Making Medical Decision Making MDM Narrative: Patient presented today with nonspecific dizziness. Her old lab results was reviewed. Hemoglobin was in the 10 range basically the same today. Complaining of generalized dizziness weakness. Patient's test today was negative. Her electrolytes are essentially the same. Patient is EKG showed a nonspecific intraventricular conduction delay heart rate was about 75 there is no old EKG to compare. This finding was discussed with the dairy clerk on-call. Dr. Aiken reviewed EKG feels comfortable follow-up on an outpatient basis. It does appear to be sinus patient troponin was negative patient never passed out never got close to passing out. Her urine was negative for any signs of infection. Patient has no risk for pulmonary emboli. Will discharge patient home Differential Diagnosis Differential Diagnoses: The differential diagnosis associated with the presentation includes Arrhythmia, UTI, anemia, related issues, PE Consult Healthcare Provider Management of the patient was discussed with: Business Database Analyst (I reviewed the EKG with the dairy clerk) Lab Data MDM Lab Attestation statement: I reviewed the patient's lab results. 09/01/23 08:59 09/01/23 08:59 Labs: Lab Results 09/01/23 09/01/23 Range/Units 08:59 10:37 WBC 10.6 (4.8-10.8) X10*3/uL RBC 4.26 (4.20-5.50) X10*6/uL Hgb 10.5 L (12.0-16.0) g/dl Hct 33.2 L (37.0-47.0) % MCV 77.9 L (80.0-98.0) fL MCH 24.6 L (27.0-33.0) pg MCHC 31.6 (31.0-35.0) g/dl RDW 15.2 (11.0-16.0) % Plt Count 335 (160-400) X10*3/uL MPV 11.0 (9.4-12.3) fL Absolute Nucleated RBC 0.000 (0.0-0.012) X10*3/uL Nucleated RBC % (auto) 0.0 (0.0-0.2) /100WBC Sodium 140 (135-145) mmol/L Potassium 4.2 (3.3-5.1) mmol/L Chloride 106 (96-108) mmol/L Carbon Dioxide 22 (22-29) mmol/L Anion Gap 16 (12-20) BUN 12 (9-16) mg/dL Creatinine 0.66 (0.5-1.4) mg/dL Estim Creat Clear Calc 135.2 Estimated GFR > 60 Random Glucose 133 H (60-115) mg/dL Calcium 9.0 (8.4-10.2) mg/dL Total Bilirubin 0.2 (0.0-1.0) mg/dL AST 16 (5-31) U/L ALT 14 (0-31) U/L Alkaline Phosphatase 70 (39-117) U/L Troponin I High Sens < 2.7 (<3.5-17.0) ng/L Total Protein 7.7 (6.5-8.0) g/dL Albumin 3.9 (3.5-5.0) g/dL Beta HCG, Quant < 2 mIU/mL Urine Color Yellow Urine Appearance Clear Urine pH 7.5 (5.0-9.0) Ur Specific [place] 1.020 (1.005-1.025) Urine Protein Negative (Neg-Trace) mg/dL Urine Glucose (UA) Negative (Negative) mg/dL Urine Ketones Negative (Negative) mg/dL Urine Blood Negative (Negative) Urine Nitrite Negative (Negative) Ur Leukocyte Esterase Negative (Negative) Urine RBC 0-2 (0-2) /HPF Urine WBC 0-5 (0-5) /HPF Ur Squamous Epith Cells 0-2 (0-2) /HPF Urine Bacteria None Seen (None Seen) Hyaline Casts 0-2 (0-2) /LPF Independent Interpretation I performed an independent interpretation of an: EKG (Sinus heart rate is 75 there is a widened QRS. There is nonspecific intraventricular conduction delay there is no acute ST segment elevation noted.) Chronic Conditions Patient?s care impacted by: Diabetes Borderline diabetes Discharge Plan Discharge Clinical Impression: Benign paroxysmal positional vertigo Patient Disposition: Home, Self-Care Instructions: Dizziness (ED) Prescriptions: New meclizine 25 mg tablet 25 mg PO TID PRN (Reason: dizziness) Qty: 14 0RF Referrals: Alfredo Aiken MD [Physician] - 09/03/23
[2023-09-01 09:05] LABS: Hematocrit 33.2 % (37.0-47.0); Hemoglobin 10.5 g/dl (12.0-16.0); Mean Corpuscular HGB Conc 31.6 g/dl (31.0-35.0); Mean Corpuscular Hemoglobin 24.6 pg (27.0-33.0); Mean Corpuscular Volume 77.9 fL (80.0-98.0); Platelet Count 335 X10*3/uL (160-400); Red Blood Count 4.26 X10*6/uL (4.20-5.50); Red Cell Distribution Width 15.2 % (11.0-16.0); White Blood Count 10.6 X10*3/uL (4.8-10.8)
[2023-09-01] MEDS: 0.9 % Sodium Chloride 1,000 ML 999 ML IV (09:16)
[2023-09-01] MEDS: Meclizine HCl 25 MG TABLET PO (09:16)
[2023-09-01 09:20] LABS: Alanine Aminotransferase 14 U/L (0-31); Albumin Level 3.9 g/dL (3.5-5.0); Alkaline Phosphatase 70 U/L (39-117); Anion Gap 16 (12-20); Aspartate Amino Transferase 16 U/L (5-31); Bilirubin Total 0.2 mg/dL (0.0-1.0); Blood Urea Nitrogen 12 mg/dL (9-16); Carbon Dioxide 22 mmol/L (22-29); Chloride 106 mmol/L (96-108); Creatinine Clr Calc Pharmacy 135.2; Estimated Glomerular Filt Rate > 60; Glucose Random 133 mg/dL (60-115); Potassium 4.2 mmol/L (3.3-5.1); Sodium 140 mmol/L (135-145); Total Protein 7.7 g/dL (6.5-8.0)
[2023-09-01 09:27] LABS: HCG Quantitative < 2 mIU/mL; Troponin-I High Sensitivity < 2.7 ng/L (<3.5-17.0)
[2023-09-01 10:48] LABS: Appearance Urine Clear; Color Urine Yellow; Glucose Urine UA Negative (Negative); Leukocyte Esterase Urine Negative (Negative); Nitrite Urine Negative (Negative); PH 7.5 (5.0-9.0); Urine Blood Negative (Negative); Urine Ketones Negative (Negative); Urine Protein Negative (Neg-Trace)
[2023-09-01 10:54] LABS: Bacteria Urine None Seen (None Seen); Hyaline Casts Urine 0-2 /LPF (0-2); RBC Urine 0-2 /HPF (0-2); Squamous Epithelial Cell Urine 0-2 /HPF (0-2); WBC Urine 0-5 /HPF (0-5)
== END 2023-09-01 12:09 | disposition home or self-care (01) ==
PROVIDERS: Emergency Provider Emergency Medicine Emergency Medical Services; PCP Pediatrics
DX: H81.10 Benign paroxysmal vertigo, unspecified ear (principal); I45.4 Nonspecific intraventricular block; R73.03 Prediabetes; I10 Essential (primary) hypertension; E78.5 Hyperlipidemia, unspecified
CPT/HCPCS: 36415; 80053; 81001; 84484; 84702; 85027; 93005; 96360; 99284

== ENCOUNTER → 2023-09-01 08:10 | Outpatient (BNV) | payer MEDICAID, SELFPAY | PROVIDERS: Emergency Provider Emergency Medicine Emergency Medical Services; PCP Pediatrics; Visit Provider Internal Medicine | DX: R94.31 Abnormal electrocardiogram [ECG] [EKG] (principal); I45.9 Conduction disorder, unspecified | CPT/HCPCS: 93010 ==

== ENCOUNTER 2023-09-04 15:30 | Outpatient (REF) | payer MEDICAID, SELFPAY ==
[2023-09-04 17:26] LABS: MANUAL DIFF FLAG NO
[2023-09-04 17:30] LABS: Basophils Percent Auto 0.5 % (0-2); Eosinophils Absolute Auto 0.1 X10*3/uL (0.0-0.4); Hematocrit 33.4 % (37.0-47.0); Hemoglobin 10.3 g/dl (12.0-16.0); Imm Gran Abs Auto 0.03 X10*3/uL (0.00-0.03); Imm Gran Pct Auto 0.3 % (0.0-0.4); Lymphocytes Absolute Auto 2.8 X10*3/uL (1.2-4.9); Lymphocytes Percent Auto 31.3 % (20-40); Mean Corpuscular HGB Conc 30.8 g/dl (31.0-35.0); Mean Corpuscular Hemoglobin 24.3 pg (27.0-33.0); Mean Corpuscular Volume 78.8 fL (80.0-98.0); Mean Platelet Volume 11.3 fL (9.4-12.3); Monocytes Absolute Auto 0.5 X10*3/uL (0.1-1.2); Monocytes Percent Auto 5.4 % (2-11); Neutrophils Absolute Auto 5.4 x10*3/uL (2.0-8.3); Neutrophils Percent Auto 61.5 % (45-73); Platelet Count 342 X10*3/uL (160-400); Red Blood Count 4.24 X10*6/uL (4.20-5.50); Red Cell Distribution Width 15.1 % (11.0-16.0); White Blood Count 8.8 X10*3/uL (4.8-10.8)
[2023-09-04 17:45] LABS: Iron 28 mcg/dL (30-160); Percent Iron Saturation 9 % (15-50); Total Iron Binding Capacity 316 mcg/dL (228-428); Unsaturated Iron Binding 288 ug/dL
[2023-09-04 17:58] LABS: Ferritin 28 ng/mL (10-122); TSH reflex Free T4 1.77 uIU/mL (0.32-4.0)
== END 2023-09-04 15:31 | disposition home or self-care (01) ==
LOC: HO.CHCLDS 15:30
PROVIDERS: Visit Provider Internal Medicine
DX: N92.0 Excessive and frequent menstruation with regular cycle (principal); D50.9 Iron deficiency anemia, unspecified
CPT/HCPCS: 36415; 82728; 83540; 84443; 85025

== ENCOUNTER 2023-10-02 13:04 | Outpatient (AMB) | payer MEDICAID, SELFPAY ==
--- NOTE | 2023-10-02 13:08 | MHC.OFFVIS ---
Intake Vital Signs 10/02/23 13:10 Height 5 ft 1 in Weight 222 lb 10.67 oz BMI 42.1 BP 112/70 Blood Pressure Location Lt brachial Position Sitting Pulse 99 Intake Visit Reasons: ED follow up Intake Note: ED follow up Prompt Care Rn Required: No Accompanied by: Spouse Allergies No Known Allergies Allergy (Verified 10/02/23 13:10) Medication List - Last Reconciled 10/02/23 by Alfredo Aiken MD albuterol sulfate 90 mcg/actuation 2 puffs inhalation QID PRN benzonatate 100 mg PO TID PRN cyclobenzaprine 10 mg PO TID PRN ibuprofen 600 mg PO Q6H PRN valacyclovir (Valtrex) 1,000 mg PO TID HPI HPI Comments History of Present Illness Details This is a cardiology consultation regarding abnormal EKG. Patient herself does not have any known cardiac issues including coronary disease or myocardial infarction or cardiomyopathy or in fact any other cardiac concerns at all. She states that for the last few weeks, she has not been feeling well. She is feeling short of breath with activity. She has been episodes of heart racing off and on. She is overweight. Otherwise no major comorbidities. According to significant other, it seems that she does snore a lot at nighttime and also stops breathing. Hence not clear if she has obstructive sleep apnea. Patient also states that she had COVID as well as zoster infection recently. But she feels that her symptoms had started before these. [facility] Medical History Asthma HLD (hyperlipidemia) HTN (hypertension) Prediabetes Family History Father Heart problem Social History Patient Tobacco Use Status: Never used Tobacco Review of Systems Const Denies chills, Denies daytime sleepiness, Denies fatigue, Denies fever(s), Denies frequent falls, Denies night sweats, Denies snoring, Denies weakness, Denies weight gain and Denies weight loss Eyes Denies loss of vision ENT Denies dizziness and Denies hearing loss Card Denies chest pain with activity, Denies syncope, Denies rapid heart rate, Denies edema, Denies claudication, Denies leg edema, Denies lightheadedness, Denies dyspnea on exertion and Denies orthopnea Resp Denies cough, Denies excessive phlegm production, Denies dyspnea on exertion, Denies snoring and Denies wheezing GI Denies abdominal pain, Denies hematochezia, Denies change in bowel habits, Denies change in stool character, Denies heartburn, Denies nausea and Denies vomiting Denies hematuria, Denies urinary frequency and Denies dysuria Musc Denies arthralgias, Denies muscle weakness, Denies numbness and Denies tingling Skin/Breast Denies nail changes and Denies rash Neuro Denies Abnormal speech present, Denies dizziness, Denies syncope, Denies frequent falls, Denies loss of vision, Denies memory loss, Denies numbness, Denies tingling and Denies weakness Psych Denies depression and Denies memory loss Endo Denies fatigue Aller/Immun Denies wheezing Physical Exam Vital Signs: Last Vital Signs Pulse 99 10/02/23 13:10 BP 112/70 10/02/23 13:10 BMI result Body Mass Index 42.1 Const General: comfortable and no acute distress Orientation/consciousness: patient oriented x3 HEENT Other: Unremarkable Head: Yes normal to inspection Neck Neck: Yes normal visual inspection Chest Chest palpation & inspection: normal inspection of the chest Resp Auscultation: clear to auscultation bilaterally Cardio Palpation: normal PMI Heart sounds: S1 normal heart sound present, S2 normal heart sound present, no gallops, no murmurs and no rubs GI Palpation (GI): Soft to palpation Back/Spine/Pelvis Other: unremarkable Skin General skin exam: no rashes or lesions noted Neuro General: patient oriented x3 Speech: No Abnormal speech present Extrem General: Yes normal to inspection Psych Mental Status: mental status grossly normal Assessment & Plan Assessment & Plan (1) Abnormal EKG: Code(s): R94.31 - Abnormal electrocardiogram [ECG] [EKG] Plan In the recent EKG, underlying rhythm is sinus at 75/Min; nonspecific interventricular conduction defect. Doubt any preexcitation. Normal IA. Corrected QT is slightly prolonged but there is also QRS widening. Findings discussed with patient. It is possible that she may have untreated sleep apnea contributing to EKG findings. She has further workup including echocardiogram, Holter as well as home sleep study. Based on the findings, we can plan further care. Orders: Orders ECG 7 day holter monitor Today R00.2 - Palpitations, R94.31 - Abnormal electrocardiogram [ECG] [EKG] RT home sleep study Today G47.33 - Obstructive sleep apnea (adult) (pediatric) CA echo transthoracic complete Today R94.31 - Abnormal electrocardiogram [ECG] [EKG] Medications: Changed From cyclobenzaprine 10 mg PO TID PRN 20 tabs 0RF muscle spasm To cyclobenzaprine 10 mg PO TID PRN From valacyclovir (Valtrex) 1,000 mg PO TID 21 tabs 0RF To valacyclovir (Valtrex) 1,000 mg PO TID From benzonatate 100 mg PO TID PRN 14 caps 0RF cough To benzonatate 100 mg PO TID PRN Coding Level of Care Code New Pt Level 4 (54202) Diagnoses Abnormal EKG R94.31
[2023-10-02 13:10] VITALS: BP 112/70; PULSE 99; BMI 42.1
== END 2023-10-02 13:32 | disposition home or self-care (01) ==
PROVIDERS: PCP Pediatrics; Referring Provider Pediatrics; Visit Provider Internal Medicine
DX: R94.31 Abnormal electrocardiogram [ECG] [EKG] (principal)
CPT/HCPCS: 99204

== ENCOUNTER → 2023-10-02 13:04 | Outpatient (BNVA) | payer MEDICAID, SELFPAY | PROVIDERS: PCP Pediatrics; Visit Provider Internal Medicine | DX: R94.31 Abnormal electrocardiogram [ECG] [EKG] (principal) | CPT/HCPCS: 99202 ==

== ENCOUNTER 2023-10-04 12:17 | Emergency (ER) | payer MEDICAID, SELFPAY ==
[2023-10-04 12:55] VITALS: BP 139/94; PULSE 121; RESP 16; TEMP 36.7; O2SAT 96; BMI 41.1
--- NOTE | 2023-10-04 12:59 | ED.ABDPAIN ---
HPI - Abdominal Pain General Chief Complaint: Abdominal Pain Stated Complaint: abd pain Time Seen by Provider: 10/04/23 16:45 Source: patient Mode of arrival: ambulatory Limitations: no limitations History of Present Illness HPI narrative: Patient is a 28 year old assigned female at with no reported medical history presenting to the emergency department today with lower abdominal pain. Patient states that starting yesterday she was began having lower abdominal pain. Patient states that she was recently on steroids for shingles, recently had COVID, and has been taking ibuprofen for her pain. Patient denies any dizziness, lightheadedness, nausea, vomiting, fever, chills, blurry vision, double vision, loss of vision, chest pain, difficulty breathing, shortness of breath, back pain, night sweats, pain with urination, increased urinary frequency, increased urinary urgency, blood in her urine or stool, syncope or a near syncopal episode, recent trauma or falls, bowel incontinence, bladder incontinence, bowel retention, bladder retention, or any other complaints at this time. MD elicited complaint: abdominal pain Onset (ago): day(s) (1) Pain Consistency: intermittent Severity: mild Exacerbating factors: nothing Relieving factors: nothing Associated symptoms: denies other symptoms Treatments prior to arrival: NSAIDs Related Data Home Medications Medication Instructions Recorded Confirmed benzonatate 100 mg capsule 100 mg PO TID PRN cough 10/02/23 10/02/23 cyclobenzaprine 10 mg tablet 10 mg PO TID PRN muscle spasm 10/02/23 10/02/23 valacyclovir 1 gram tablet 1,000 mg PO TID 10/02/23 10/02/23 (Valtrex) Previous Rx's Medication Instructions Recorded ibuprofen 600 mg tablet 600 mg PO Q6H PRN pain #30 tabs 10/08/21 albuterol sulfate 90 mcg/actuation 2 puff inhalation QID PRN 09/24/23 aerosol inhaler shortness of breath or wheezing #6.7 grams Allergies Allergy/AdvReac Type Severity Reaction Status Date / Time No Known Allergies Allergy Verified 10/02/23 13:10 Review of Systems Constitutional: Reports no additional constitutional complaints, Denies chills, Denies fever(s) and Denies night sweats Eyes: Reports no additional eye complaints, Denies blurry vision, Denies change in vision, Denies diplopia, Denies eye discharge, Denies loss of vision and Denies eye pain Denies dizziness Cardiovascular: Reports no additional cardiovascular complaints, Denies chest pain, Denies lightheadedness, Denies Loss of Consciousness and Denies dyspnea Respiratory: Reports no additional respiratory complaints and Denies dyspnea Gastrointestinal: Reports no additional gastrointestinal complaints, Reports abdominal pain, Denies melena, Denies hematochezia, Denies change in bowel habits and Denies change in stool character Genitourinary: Denies hematuria, Denies urinary frequency, Denies dysuria, Denies urinary incontinence, Denies urinary hesitancy and Denies urinary urgency Musculoskeletal: Reports no additional musculoskeletal complaints, Denies numbness and Denies tingling Denies dizziness, Denies loss of vision, Denies numbness and Denies tingling Psychiatric: Reports no additional psychiatric complaints Endocrine: Reports no additional endocrine complaints Hematologic/Lymphatic: Reports no additional hematologic/lymphatic complaints Allergic/Immunologic: Reports no additional allergic/immunologic complaints PMFSH Past Medical History Attestation statement: The following information was validated with the patient. Source: old records reviewed and nursing notes reviewed Onset Date is defined in the Problem List Problems that require an onset date and time if occurred within 24 hrs of arrival to the ED Aortic Dissection and Rupture; Neurologic impairment; Cardiopulmonary Arrest; Endotracheal Intubation; Insertion or Replacement of Mechanical Circulatory Assist Device Medical History Asthma HLD (hyperlipidemia) HTN (hypertension) Prediabetes Family History Family History Father Heart problem Social History Social History Patient Tobacco Use Status: Never used Tobacco Advance Directives: No Advance Directives Information Provided: No Physical Exam ED Vital Signs: Vital Signs - 24 hr 10/04/23 12:55 10/04/23 17:23 Temperature 98.1 F 97.8 F Pulse Rate 121 H 89 Respiratory Rate 16 18 Blood Pressure 139/94 H 138/80 Pulse Oximetry 96 98 Oxygen Delivery Method Room Air Room Air BMI result Body Mass Index 41.1 Const General: cooperative, no acute distress, alert and awake Nutritional Appearance: well nourished Orientation/consciousness: patient oriented x3 Limitations: no limitations HENMT Head: Yes normal to inspection and Yes atraumatic Ears: hearing grossly normal bilaterally and external ears normal General nose exam: Normal external nose present, no nasal discharge noted and no epistaxis Face and sinus: Yes normal facial exam, No abrasion and No laceration Mouth: Normal oral and palatal mucosa present, no drooling and no muffled voice Eyes General: appearance normal, both eyes and all related structures Periorbital: periorbital findings normal Eyelids: Yes eyelids normal Conjunctivae: conjunctivae normal Pupils: Equal, round and reactive pupils present EOM: EOMs intact bilaterally Neck Neck: Yes normal visual inspection, Yes full ROM and Yes no lymphadenopathy Chest Chest palpation & inspection: normal inspection of the chest Resp Effort & Inspection: normal respiratory effort and able to speak in complete sentences GI Inspection: Yes normal to inspection Palpation (GI): Soft to palpation, not firm, nontender and no guarding Neuro General: patient oriented x3 and moves all extremities Cranial nerves: Yes Equal, round and reactive pupils present Cognition (Neuro): normal cognition Motor exam (neuro): 5/5 motor strength present throughout Sensory Exam: Normal double simultaneous stimulation for sensation Coordination: [id number] test normal Extrem General: Yes normal to inspection, Yes full ROM and Yes capillary refill normal Psych Appearance: grossly normal Mental Status: mental status grossly normal Affect: normal affect Attitude: cooperative Thought process: Normal thought process present Thought content: Normal thought content present Insight: Good insight present (Psych) Course Course Course Narrative: This is an RME: Additional HPI, ROS, PE not included below will be deferred to primary provider. Patient is a 28-year-old female who presents emergency department for evaluation of lower abdominal pain/pelvic pain. Onset yesterday. Increased urinary frequency. Denies fevers chills nausea or vomiting. Plan: Labs, urinalysis, hCG Medical Decision Making Medical Decision Making MDM Narrative: Patient is a 28 year old assigned female at with no reported medical history presenting to the emergency department today with lower abdominal pain. Patient's physical exam was unremarkable. Patient was actively eating [employer] maltese fries when I performed my physical exam. Patient's blood work showed an elevated WBC count however, this is likely due to her recent steroid use and not an infectious process. Patient's urine showed no acute process. I explained my physical exam findings as well as all test results to the patient. I answered all questions asked by the patient. Patient was adamant that she needed something that wasn't ibuprofen or Tylenol for the abdominal pain. Patient was given one dose of oxycodone while in the department for pain. I stressed the importance of the patient taking her medication as prescribed. I stressed the importance of the patient following up with her primary care provider and a GI specialist. I stressed the importance of the patient returning to the emergency department immediately if her symptoms were to worsen or if she were to develop any dizziness, shortness of breath, difficulty breathing, chest pain, blurry vision, loss of vision, nausea, vomiting, abdominal pain, fever, chills, back pain, or any other complaints. Patient verbalized agreement and understanding with this treatment plan and discharge. Differential Diagnosis Differential Diagnoses: The differential diagnosis associated with the presentation includes Abdominal pain UTI Gastroenteritis Viral illness COVID-19 Influenza Admission/Observation Consideration of admission/observation: Escalation of care including admission/observation considered Patient would have been admitted to the hospital had her work up had any findings where hospital admission was appropriate and her clinical presentation warranted hospital admission. Lab Data [facility] [place] Lab Attestation statement: I reviewed the patient's lab results. My interpretation of these results are in the [facility] Rationale portion of this note. 10/04/23 14:53 10/04/23 14:53 Labs: Lab Results 10/04/23 Range/Units 14:53 WBC 19.4 H (4.8-10.8) X10*3/uL RBC 4.59 (4.20-5.50) X10*6/uL Hgb 11.3 L (12.0-16.0) g/dl Hct 35.6 L (37.0-47.0) % MCV 77.6 L (80.0-98.0) fL MCH 24.6 L (27.0-33.0) pg MCHC 31.7 (31.0-35.0) g/dl RDW 15.9 (11.0-16.0) % Plt Count 332 (160-400) X10*3/uL MPV 10.4 (9.4-12.3) fL Immature Gran % (Auto) 1.1 H (0.0-0.4) % Neut % (Auto) 79.2 H (45-73) % Lymph % (Auto) 14.4 L (20-40) % Coffee % (Auto) 3.9 (2-11) % Eos % (Auto) 0.9 (0-4) % Baso % (Auto) 0.5 (0-2) % Lymph # (Auto) 2.8 (1.2-4.9) X10*3/uL Coffee # (Auto) 0.8 (0.1-1.2) X10*3/uL Eos # (Auto) 0.2 (0.0-0.4) X10*3/uL Baso # (Auto) 0.1 (0.0-0.2) X10*3/uL Abs Immat Gran (auto) 0.21 H (0.00-0.03) X10*3/uL Absolute Neuts (auto) 15.4 H (2.0-8.3) x10*3/uL Absolute Nucleated RBC 0.000 (0.0-0.012) X10*3/uL Nucleated RBC % (auto) 0.0 (0.0-0.2) /100WBC Sodium 134 L (135-145) mmol/L Potassium 4.1 (3.3-5.1) mmol/L Chloride 101 (96-108) mmol/L Carbon Dioxide 27 (22-29) mmol/L Anion Gap 10 L (12-20) BUN 9 (9-16) mg/dL Creatinine 0.76 (0.5-1.4) mg/dL Estim Creat Clear Calc 116.5 Estimated GFR > 60 Random Glucose 189 H (60-115) mg/dL Calcium 9.2 (8.4-10.2) mg/dL Total Bilirubin 0.7 (0.0-1.0) mg/dL AST 10 (5-31) U/L ALT 16 (0-31) U/L Alkaline Phosphatase 72 (39-117) U/L Total Protein 7.9 (6.5-8.0) g/dL Albumin 4.1 (3.5-5.0) g/dL Beta HCG, Quant < 2 mIU/mL Urine Color Yellow Urine Appearance Clear Urine pH 6.5 (5.0-9.0) Ur Specific [place] 1.020 (1.005-1.025) Urine Protein Negative (Neg-Trace) mg/dL Urine Glucose (UA) Negative (Negative) mg/dL Urine Ketones Trace (Negative) mg/dL Urine Blood Negative (Negative) Urine Nitrite Negative (Negative) Ur Leukocyte Esterase Trace H (Negative) Urine RBC 0-2 (0-2) /HPF Urine WBC 0-5 (0-5) /HPF Ur Squamous Epith Cells 6-10 (0-2) /HPF Urine Bacteria None Seen (None Seen) Hyaline Casts 0-2 (0-2) /LPF Tests considered The following testing was considered but not selected: CT of the abdomen/pelvis was considered however, the patient's current clinical presentation and work up do not warrant additional imaging. I explained this to the patient who verbalized understanding and agreement. Medications Administered Discontinued Medications Generic Name Dose Route Start Last Admin Trade Name Freq PRN Reason Stop Dose Admin Oxycodone HCl 10 mg 10/04/23 17:01 10/04/23 17:18 Oxycodone Hcl Immed Release 5 Mg Tablet PO 10/04/23 17:02 10 mg ONCE ONE Administration Discharge Plan Discharge Clinical Impression: Gastroenteritis, Abdominal pain Patient Disposition: Home, Self-Care Instructions: Gastroenteritis (DC), Abdominal Pain (ED) Additional Instructions: STOP taking NSAIDS (Naproxen, motrin, ibuprofen, excedrin, etc.). Follow up with your primary care provider. Return to the emergency department immediately if your symptoms worsen or if you develop any dizziness, shortness of breath, difficulty breathing, chest pain, blurry vision, loss of vision, nausea, vomiting, abdominal pain, fever, chills, back pain, or any other complaints. Prescriptions: No Action ibuprofen 600 mg tablet 600 mg PO Q6H PRN (Reason: pain) Qty: 30 0RF benzonatate 100 mg capsule 100 mg PO TID PRN (Reason: cough) cyclobenzaprine 10 mg tablet 10 mg PO TID PRN (Reason: muscle spasm) valacyclovir [Valtrex] 1 gram tablet 1,000 mg PO TID albuterol sulfate 90 mcg/actuation HFA aerosol inhaler 2 puff inhalation QID PRN (Reason: shortness of breath or wheezing) Qty: 6.7 0RF Referrals: [facility] [place] [facility] [Provider Group] (Call to establish and follow up with a GI Specialist. ) Kathy Akins MD [Primary Care Provider] - Stand Alone Forms: Work/School Release Interventions: ED Discharge Assessment Last Done: 10/04/23 17:26 Discharge Date/Time: 10/04/23 17:27 Print Language: Palauan
[2023-10-04 14:57] LABS: MANUAL DIFF FLAG NO
[2023-10-04 15:00] LABS: Basophils Absolute Auto 0.1 X10*3/uL (0.0-0.2); Basophils Percent Auto 0.5 % (0-2); Eosinophils Absolute Auto 0.2 X10*3/uL (0.0-0.4); Eosinophils Percent Auto 0.9 % (0-4); Hematocrit 35.6 % (37.0-47.0); Hemoglobin 11.3 g/dl (12.0-16.0); Imm Gran Abs Auto 0.21 X10*3/uL (0.00-0.03); Imm Gran Pct Auto 1.1 % (0.0-0.4); Lymphocytes Absolute Auto 2.8 X10*3/uL (1.2-4.9); Lymphocytes Percent Auto 14.4 % (20-40); Mean Corpuscular HGB Conc 31.7 g/dl (31.0-35.0); Mean Corpuscular Hemoglobin 24.6 pg (27.0-33.0); Mean Corpuscular Volume 77.6 fL (80.0-98.0); Mean Platelet Volume 10.4 fL (9.4-12.3); Monocytes Absolute Auto 0.8 X10*3/uL (0.1-1.2); Monocytes Percent Auto 3.9 % (2-11); Neutrophils Absolute Auto 15.4 x10*3/uL (2.0-8.3); Neutrophils Percent Auto 79.2 % (45-73); Platelet Count 332 X10*3/uL (160-400); Red Blood Count 4.59 X10*6/uL (4.20-5.50); Red Cell Distribution Width 15.9 % (11.0-16.0); White Blood Count 19.4 X10*3/uL (4.8-10.8)
[2023-10-04 15:04] LABS: Appearance Urine Clear; Color Urine Yellow; Glucose Urine UA Negative (Negative); Leukocyte Esterase Urine Trace (Negative); Nitrite Urine Negative (Negative); PH 6.5 (5.0-9.0); UMIC TRIGGER UACC YES; Urine Blood Negative (Negative); Urine Ketones Trace mg/dL (Negative); Urine Protein Negative (Neg-Trace)
[2023-10-04 15:19] LABS: Alanine Aminotransferase 16 U/L (0-31); Albumin Level 4.1 g/dL (3.5-5.0); Alkaline Phosphatase 72 U/L (39-117); Anion Gap 10 (12-20); Aspartate Amino Transferase 10 U/L (5-31); Bilirubin Total 0.7 mg/dL (0.0-1.0); Blood Urea Nitrogen 9 mg/dL (9-16); Calcium 9.2 mg/dL (8.4-10.2); Carbon Dioxide 27 mmol/L (22-29); Chloride 101 mmol/L (96-108); Creatinine Clr Calc Pharmacy 116.5; Estimated Glomerular Filt Rate > 60; Glucose Random 189 mg/dL (60-115); Potassium 4.1 mmol/L (3.3-5.1); Sodium 134 mmol/L (135-145); Total Protein 7.9 g/dL (6.5-8.0)
[2023-10-04 15:24] LABS: Bacteria Urine None Seen (None Seen); Hyaline Casts Urine 0-2 /LPF (0-2); RBC Urine 0-2 /HPF (0-2); WBC Urine 0-5 /HPF (0-5)
[2023-10-04 15:30] LABS: HCG Quantitative < 2 mIU/mL
--- NOTE | 2023-10-04 16:59 | PC.NURSE ---
Pt ambulatory with steady gait [place] [facility] [place], assumed care at this time. Currently eating [employer], pt kindly asked to refrain from PO intake until provider has evaluated her and developed plan of care.
--- NOTE | 2023-10-04 17:01 | PC.NURSE ---
Provider to bedside for primary eval.
[2023-10-04] MEDS: oxyCODONE HCl Immed Release 5 MG TABLET 10 MG PO (17:18)
[2023-10-04 17:23] VITALS: BP 138/80; PULSE 89; RESP 18; TEMP 36.6; O2SAT 98
--- NOTE | 2023-10-04 17:24 | PC.NURSE ---
Pt medicated per NOV, NAD. Cleared for dc home awaiting dc instructions.
== END 2023-10-04 17:27 | disposition home or self-care (01) ==
PROVIDERS: Nurse Practitioner Family; Emergency Provider Emergency Medicine Emergency Medical Services; PCP Pediatrics
DX: K52.9 Noninfective gastroenteritis and colitis, unspecified (principal); R10.30 Lower abdominal pain, unspecified; Z79.899 Other long term (current) drug therapy
CPT/HCPCS: 36415; 80053; 81001; 81003; 84702; 85025; 99283; 99284

== ENCOUNTER → 2023-10-10 12:33 | Outpatient (REF) | payer MEDICAID, SELFPAY | LOC: HO.SL 12:33 | PROVIDERS: PCP Pediatrics; Visit Provider Internal Medicine | DX: G47.33 Obstructive sleep apnea (adult) (pediatric) (principal) | CPT/HCPCS: 95806 ==

== ENCOUNTER → 2023-10-10 13:17 | Outpatient (BNV) | payer MEDICAID, SELFPAY | PROVIDERS: PCP Pediatrics; Visit Provider Internal Medicine | DX: G47.33 Obstructive sleep apnea (adult) (pediatric) (principal) | CPT/HCPCS: 95806 ==

== ENCOUNTER → 2023-10-18 10:54 | Outpatient (REF) | payer MEDICAID, SELFPAY ==
--- NOTE | 2023-10-18 10:58 | HM_ITS ---
* Total monitoring time 2 days. * Underlying rhythm is sinus with an average rate of 93/Min. Range 65 to 158/Min. About 25% of the time, rate > 100/Min. * Rare supraventricular ectopy. * No sustained arrhythmias. * No significant pauses or AV blocks. * No patient markers or diary events. MTDD
--- NOTE | 2023-10-18 10:58 | CA_ITS ---
Transthoracic Echocardiogram Patient (Last, First, Middle): Risa Barnett, Gender: Female Date of : 1995 Age: 28 Procedure Date: 10/18/2023 Procedure Type: Transthoracic Echocardiogram Location: OP Height: 154.94 cm Weight: 97.52 kg BSA: 1.95 m2 Heart Rate: bpm BP: 128 / 60 mmHg Engineering Drafter: TO Referring MD: Alfredo Aiken MD Symptoms: R94.31 - Abnormal electrocardiogram [ECG] [EKG] Study Quality: Fair/Contrast Conclusions: - Normal left ventricular cavity size. There is mildly increased left ventricular wall thickness. The left ventricular systolic function is low normal. The visually estimated ejection fraction is between 50-55%. - E/E prime ratio is between 8 and 15 consistent with indeterminate filling pressures. - Septal is dyskinetic- may be due to LBBB. - Normal right ventricular cavity size and systolic function. - Moderately elevated right atrial pressure. - There is mild dilatation of the sinuses of Valsalva measuring 3.51 cm. Findings Procedure Information Contrast agent, definity, is being given per protocol without apparent complications. Left Ventricle Normal left ventricular cavity size. There is mildly increased left ventricular wall thickness. The left ventricular systolic function is low normal. The visually estimated ejection fraction is between 50-55%. Abnormal diastolic function is noted. Spectral Doppler is indicative of a pseudonormal filling pattern. E/E prime ratio is between 8 and 15 consistent with indeterminate filling pressures. Septal is dyskinetic- may be due to LBBB. Right Ventricle Normal right ventricular cavity size and systolic function. Atria The left atrium is normal in size. The right atrium is normal in size. Aortic Valve Normal aortic valve structure and function. There is no aortic valve stenosis. There is no aortic valve regurgitation. Mitral Valve The mitral valve appears normal. There is trace mitral valve regurgitation. There is no mitral valve stenosis. Pulmonic Valve Normal pulmonic valve structure and function. There is no pulmonic valve regurgitation. Tricuspid Valve Normal tricuspid valve structure. There is no tricuspid valve regurgitation. Tricuspid regurgitation envelope is inadequate for calculation of right ventricular systolic pressure. Moderately elevated right atrial pressure. Great Vessels There is mild dilatation of the sinuses of Valsalva measuring 3.51 cm. The visualized portions of the pulmonary artery and branches are normal. Venous The inferior vena cava is dilated and collapses greater than 50% with inspiration. Pericardium/Pleural There is no evidence of pericardial effusion. Prior Study Comparison No prior study available for comparison. Measurements 2D Linear Measurements IVSd: 1.10 0.6-0.9/0.6-1.0 cm LVIDd: 4.77 3.9-5.3/4.2-5.9 cm LVIDd Index: 2.45 2.4-3.2/2.2-3.1 cm/m2 LVIDs: 3.63 2.0-3.6 cm LVPWd: 0.92 0.7-1.1 cm LA Diam: 3.80 2.7-3.8/3.0-4.0 cm LAIDs Index: 1.95 1.5-2.3 cm/m2 LV Mass: 212.98 67-162/88-224 g LV Mass Index: 109.22 43-95/49-115 g/m2 LVOT Diam: 2.20 3.0+(-)1.3 cm 2D Systolic Function EF 4C: 58.20 >55% Mitral Valve MV Pk E: 0.70 MV PK A: 0.63 MV Decel Time: 214.00 E/A: 1.10 E'Lateral: 8.81 E'Medial: 6.85 E/E' Med: 10.30 E/E' Lat: 8.00 PHT: 63.00 MVA PHT: 3.49 Decel [place]: 3.29 Aortic Valve AoV Pk Dag[place]to: 1.25 AoV Mn Dag[place]: 0.87 AoV VTI: 0.24 AoV Pk Grad: 6.00 Aov Mn Grad: 3.00 JESSICA Cont.VTI: 2.46 LVOT LVOT Pk [place]: 0.79 LVOT Mn [place]: 0.58 LVOT VTI: 0.16 LVOT Pk Grad: 3.00 LVOT Mn Grad: 2.00 LVOT Diam: 2.20 LVOT Area: 3.80 Diastolic Function MV Pk E: 0.70 MV Pk A: 0.63 E/A: 1.10 E'Medial: 6.85 E/E' Med: 10.30 E' Laterial: 8.81 E/E' Lat: 8.00 Right Ventricle TAPSE (mm): 22.20 TVS' Dagoberto: 11.60 Tricuspid Valve RA Press: 8.00 Great Vessels Aorta Sinus of Valsalva: 3.51 2.0-3.[address] [place]: 2.20 1.7-3.4 cm Ao Asc: 2.90 2.1-3.4 cm Updated in Other Vendor System with Status of Final Rome Healy MD electronically signed on 10/19/2023 7:33:37 PM with status of Final
== END ==
LOC: HO.CARD 10:54
PROVIDERS: PCP Pediatrics; Visit Provider Internal Medicine
DX: R00.2 Palpitations (principal); R94.31 Abnormal electrocardiogram [ECG] [EKG]
CPT/HCPCS: 93225; 93306; Q9957

== ENCOUNTER → 2023-10-18 10:58 | Outpatient (BNV) | payer MEDICAID, SELFPAY | PROVIDERS: PCP Pediatrics; Visit Provider Internal Medicine Cardiovascular Disease | DX: I47.10 Supraventricular tachycardia, unspecified (principal) | CPT/HCPCS: 93227; 93306 ==

== ENCOUNTER 2023-12-02 18:20 | Outpatient (REF) | payer MEDICAID, SELFPAY ==
[2023-12-03 12:44] LABS: Appearance Urine Cloudy; Color Urine Orange; Leukocyte Esterase Urine Moderate (2+) (Negative); Nitrite Urine Positive (Negative); Specific Gravity - Urine 1.025 (1.005-1.025); UMIC TRIGGER UACC YES; Urine Blood Trace (Negative); Urine Ketones Negative (Negative); Urine Protein 30 (1+) mg/dL (Neg-Trace)
[2023-12-03 13:08] LABS: Bacteria Urine 4+ (None Seen); Hyaline Casts Urine 0-2 /LPF (0-2); RBC Urine 0-2 /HPF (0-2); WBC Urine >50 /HPF (0-5)
[2023-12-03 13:12] LABS: UACC Culture Trigger YES
== END 2023-12-02 18:21 | disposition home or self-care (01) ==
LOC: HO.LNP 18:20
PROVIDERS: Visit Provider Internal Medicine
DX: R30.0 Dysuria (principal)
CPT/HCPCS: 81001; 87086; 87088; 87186

== ENCOUNTER 2023-12-05 15:02 | Outpatient (AMB) | payer MEDICAID, SELFPAY ==
[2023-12-05 15:10] VITALS: BP 132/70; PULSE 92; O2SAT 97; BMI 41.8
--- NOTE | 2023-12-05 15:10 | MHC.OFFVIS ---
Intake Vital Signs 12/05/23 15:10 Height 5 ft 1 in Weight 221 lb 1.978 oz BMI 41.8 BP 132/70 Blood Pressure Location Rt brachial Position Sitting Pulse 92 Pulse Source Pulse Oximeter Pulse Oximetry (%) 97 Oxygen Delivery Method Room Air Intake Visit Reasons: sleep apnea Allergies No Known Allergies Allergy (Verified 12/05/23 15:20) HPI HPI Comments History of Present Illness Details The patient is here for pulmonary evaluation. The patient is a 28 year woman presenting with an abnormal sleep study. Apparently patient has been having increased cardiovascular risk factors. the patient states that for the last few years she has had increased daytime drowsiness. Her [place] score is 11/24. The patient has been struggling while at work because her significant daytime drowsiness. She states that she sleeps about 8 hours a night and still wakes up tired. She does have a bed partner. He has complained because she does stop breathing. He sometimes has to wake her up because she is not breathing. She also has significant snoring documented by her significant other. The patient also has cardiovascular risk factors. She was evaluated by Cardiology and did have an echocardiogram demonstrating some degree of cardiac hypertrophy. In addition to that she has had lower extremity edema. therefore, the patient was sent for sleep study. Based on the home sleep study was noted that her AHI was elevated consistent with [id number] sleep apnea. The patient also had evidence of hypoxia and she was also tachycardic up to about 113 while sleeping. Explained to the patient that based on all her cardiovascular risk factors it is crucial that she start CPAP therapy to minimize on her cardiovascular risk and cerebrovascular risk. The patient is agreeable to start CPAP at this time. Will go ahead and set her up with a local [employer] company in order for her to be provided the equipment and start therapy. The patient should bring her CPAP with her to the next visit. In the meantime the patient does also carry history of asthma. She did have a short-acting beta agonist in the past. Currently she is doing well and has not required any respiratory therapy. [facility] Medical History (Updated 12/05/23 @ 22:13 by Salvador Barnett MD) JEREMY (obstructive sleep apnea) Asthma HLD (hyperlipidemia) HTN (hypertension) Prediabetes Family History Father Heart problem Social History Patient Tobacco Use Status: Never used Tobacco Review of Systems Const Reports daytime sleepiness, Reports difficulty sleeping, Reports snoring and Reports stops breathing during sleep Eyes Denies loss of vision ENT Denies dizziness and Denies hearing loss Card Denies syncope, Reports rapid heart rate, Denies claudication, Reports leg edema, Denies dyspnea on exertion and Denies orthopnea Resp Denies cough, Denies excessive phlegm production, Denies dyspnea on exertion, Reports snoring and Denies wheezing GI Denies abdominal pain, Denies hematochezia, Denies change in bowel habits, Denies change in stool character, Denies heartburn, Denies nausea and Denies vomiting Reports no additional complaints Musc Denies arthralgias, Denies muscle weakness, Denies numbness and Denies tingling Skin/Breast Denies nail changes and Denies rash Neuro Denies Abnormal speech present, Denies dizziness, Denies syncope, Denies loss of vision, Denies memory loss, Denies numbness and Denies tingling Psych Denies depression and Denies memory loss Aller/Immun Denies wheezing Physical Exam Vital Signs: Last Vital Signs Pulse 92 12/05/23 15:10 BP 132/70 12/05/23 15:10 Pulse Ox 97 12/05/23 15:10 Oxygen Delivery Method Room Air 12/05/23 15:10 BMI result Body Mass Index 41.8 Const General: comfortable and no acute distress Orientation/consciousness: patient oriented x3 HEENT Other: Unremarkable Head: Yes normal to inspection Neck Neck: Yes normal visual inspection Chest Chest palpation & inspection: normal inspection of the chest Resp Effort & Inspection: normal respiratory effort Auscultation: clear to auscultation bilaterally Cardio Heart sounds: S1 normal heart sound present, S2 normal heart sound present, no gallops, Murmur heart sound present and no rubs GI Palpation (GI): Soft to palpation Back/Spine/Pelvis Other: unremarkable Skin General skin exam: no rashes or lesions noted Neuro General: patient oriented x3 Speech: No Abnormal speech present Extrem General: Yes normal to inspection Psych Mental Status: mental status grossly normal Assessment & Plan Assessment & Plan (1) JEREMY (obstructive sleep apnea): Code(s): G47.33 - Obstructive sleep apnea (adult) (pediatric) (2) Asthma: Code(s): J45.909 - Unspecified asthma, uncomplicated Qualifiers: Asthma severity: mild Asthma persistence: intermittent Asthma complication type: uncomplicated Qualified Code(s): J45.20 - Mild intermittent asthma, uncomplicated (3) HLD (hyperlipidemia): Code(s): E78.5 - Hyperlipidemia, unspecified Qualifiers: Hyperlipidemia type: unspecified Qualified Code(s): E78.5 - Hyperlipidemia, unspecified (4) HTN (hypertension): Code(s): I10 - Essential (primary) hypertension Qualifiers: Hypertension type: unspecified Qualified Code(s): I10 - Essential (primary) hypertension Plan Start APAP 6-14 No need for respiratort therapy at this time F/U 3-4 months Coding Level of Care Code New Pt Level 4 (50709) Diagnoses JEREMY (obstructive sleep apnea) G47.33 Mild intermittent asthma without complication J45.20 Asthma severity: mild Asthma persistence: intermittent Asthma complication type: uncomplicated Hyperlipidemia, unspecified hyperlipidemia type E78.5 Hyperlipidemia type: unspecified Hypertension, unspecified type I10 Hypertension type: unspecified Time Spent (min) 36
== END 2023-12-05 15:49 | disposition home or self-care (01) ==
PROVIDERS: PCP Pediatrics; Referring Provider Internal Medicine; Visit Provider Hospitalist
DX: G47.33 Obstructive sleep apnea (adult) (pediatric) (principal); J45.20 Mild intermittent asthma, uncomplicated; E78.5 Hyperlipidemia, unspecified; I10 Essential (primary) hypertension
CPT/HCPCS: 99204

== ENCOUNTER → 2023-12-05 15:02 | Outpatient (BNVA) | payer MEDICAID, SELFPAY | PROVIDERS: PCP Pediatrics; Referring Provider Internal Medicine; Visit Provider Hospitalist | DX: J45.20 Mild intermittent asthma, uncomplicated (principal); G47.33 Obstructive sleep apnea (adult) (pediatric); E78.5 Hyperlipidemia, unspecified; I10 Essential (primary) hypertension | CPT/HCPCS: 99202 ==

== ENCOUNTER 2024-01-20 14:03 | Outpatient (REF) | payer MEDICAID, SELFPAY ==
[2024-01-20 18:22] LABS: Alanine Aminotransferase 16 U/L (0-31); Albumin Level 3.9 g/dL (3.5-5.0); Alkaline Phosphatase 61 U/L (39-117); Anion Gap 14 (12-20); Aspartate Amino Transferase 15 U/L (5-31); Bilirubin Total 0.5 mg/dL (0.0-1.0); Blood Urea Nitrogen 11 mg/dL (9-16); Calcium 8.8 mg/dL (8.4-10.2); Carbon Dioxide 24 mmol/L (22-29); Chloride 103 mmol/L (96-108); Estimated Glomerular Filt Rate > 60; Glucose Random 89 mg/dL (60-115); Potassium 3.8 mmol/L (3.3-5.1); Sodium 137 mmol/L (135-145); Total Protein 7.6 g/dL (6.5-8.0)
[2024-01-20 18:43] LABS: HCG Quantitative < 2 mIU/mL; TSH reflex Free T4 1.71 uIU/mL (0.32-4.0)
[2024-01-21 08:05] LABS: Estimated Average Glucose 154 mg/dL
== END 2024-01-20 14:04 | disposition home or self-care (01) ==
LOC: HO.CHCLDS 14:03
PROVIDERS: Visit Provider Internal Medicine
DX: R73.03 Prediabetes (principal); R42 Dizziness and giddiness
CPT/HCPCS: 36415; 80053; 83036; 84443; 84702

== ENCOUNTER → 2024-02-25 11:39 | Outpatient (BNVA) | payer OTHER, SELFPAY | PROVIDERS: PCP Pediatrics; Visit Provider Physician Assistant Medical | DX: Z13.89 Encounter for screening for other disorder (principal) | CPT/HCPCS: 99213 ==

== ENCOUNTER 2024-02-26 15:00 | Outpatient (RCR) | payer OTHER, MEDICAID, SELFPAY ==
--- NOTE | 2024-02-20 11:34 | MHC.PT.EP ---
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 Patient impairments include pain, poor posture, limited ROM, weakness, intemittent radicular sxs to R lateral hip, antalgic gait, impaired transfers, inability to work regular duty job duties. Patient current functional limitations are prolonged sitting, standing or walking, bending/squat, stairs, transfers (rolling), work regular duty. Patient will benefit from skilled PT to address aforementioned impairments and functional limitations to meet established goals. Frequency and Duration: The patient will be seen 2-3x/week for 6 weeks Short Term Goals: 2 weeks Patient demonstrates consistency and independence with HEP to self manage symptoms. Patient is able to perform independent transfers rolling, lying supine and s/l without labored movements. [employer] Coordinator Goals: 4 weeks Patient presents with increased lumbar spine flexion 80 degrees to restore mobility to perform bending required for full duty work tasks. Patient presents with increased R hip flexion 5/5 without pain to be able to perform prolonged standing for work tasks. Treatment Plan: Modalities to reduce pain, spasms and effusion. Manual therapy to restore motion and function. Therapeutic exercise to improve strength and flexibility. Neuromuscular re-education for posture and balance. Therapeutic activities to return to functional activities of daily living. Electronically signed by: Fransico Lackey, PT, DPT Please sign and return to therapist. Thank you for your referral.
--- NOTE | 2024-04-01 13:33 | MHC.PT.DC ---
[facility] [place] Office [place] Office [place] Office [address] [phone] F: [phone] F: [phone] F: [phone] F: [phone] Physical Therapy Discharge Report Diagnosis: RIGHT lumbosacral strain Date of Surgery: Date of Evaluation: 02/20/24 Date of Discharge: 04/01/24 Treatments to Date: 2 Cancellations to Date: 0 No Shows to Date: 6 Discharge Status: Visit Non-compliance Discharge Summary: Risa attended 2 PT sessions, therefore difficulty determining effectiveness of PT interventions on her condition due to limited visits. She did not show to her scheduled visits and is discharged from PT at this time. Electronically signed by: Fransico Lackey, PT, DPT Please sign and return to therapist. Thank you for your referral.
== END 2024-04-01 13:33 | disposition home or self-care (01) ==
LOC: HO.PT 15:00
PROVIDERS: PCP Pediatrics; Visit Provider Physician Assistant Medical
DX: S39.012D Strain of muscle, fascia and tendon of lower back, subsequent encounter (principal)
CPT/HCPCS: 97014; 97110; 97140; 97161; 97535

== ENCOUNTER 2024-04-02 13:53 | Outpatient (REF) | payer OTHER, SELFPAY | END 2024-04-02 13:54 | disposition home or self-care (01) | LOC: HO.CHCLDS 13:53 | PROVIDERS: Visit Provider Pediatrics | DX: N92.6 Irregular menstruation, unspecified (principal); N92.0 Excessive and frequent menstruation with regular cycle | CPT/HCPCS: 36415; 84702 ==